=== PATIENT | female | born 1985 | race Hispanic/Latino ===

== ENCOUNTER 2016-11-28 12:39 | Emergency (ER) | payer OTHER ==
[~2016-11-28] VITALS: Ht 177.8 cm; Wt 140.6 kg
[~2016-11-28 12:39] MED LIST: BENZONATATE200 MG PO; CARAFATE 1GM1000 MG PO; CARVEDILOL6.25 MG PO; CLONAZEPAM0.5 MG PO; CLONAZEPAM1 MG PO; DILAUDID2 MG PO; HUMALOG100 U/ML SC; LANTUS INS100 UNITS/ SC; LEVAQUIN750 MG PO; LEXAPRO 10MG10 MG PO; OXYCODONE HCL15 MG PO; PANTOPRAZOLE SO40 MG PO; PERCOCET 325 MG1 TA2 PO; REGLAN10 MG PO; TRAMADOL HYDROC50 MG PO; VICODIN5-300 PO; ZOFRAN 4 MG TABL4 MG PO; ZOFRAN ODT4 MG PO; ZOFRAN ODT4 MG SL; ZOFRAN4 M1 PO
--- NOTE | 2016-11-28 15:00 | ED GI/GU/ABDOMINAL COMPLAINT ---
History of Present Illness General Chief Complaint: Abdominal Pain/Flank Pain Stated Complaint: UPPER ABD. PAIN, VOMITING X 1MTH Source: patient, old records Exam Limitations: no limitations Vital Signs & Intake/Output Vital Signs & Intake/Output Vital Signs Date Time Temp Pulse Resp B/P Pulse O2 O2 Flow FiO2 Ox Delivery Rate 11/28 1634 98.2 94 20 181/111 97 Room Air 11/28 1518 99 Room Air 11/28 1244 97.6 90 18 154/88 98 Room Air Allergies Coded Allergies: Penicillins (SWELLING 11/28/16) morphine (HIVES 11/28/16) Reconcile Medications Benzonatate 200 MG CAPSULE 1 CAP PO TID PRN COUGH Carvedilol 6.25 MG TABLET 1 TAB PO BID HTN (Reported) Clonazepam 1 MG TABLET 1 TAB PO BID ANXIETY (Reported) Escitalopram Oxalate (Lexapro 10MG) 10 MG TABLET 1 TAB PO DAILY ANXIETY ( Reported) HYDROCODONE/ACETAMINOPHEN (Hydrocodon-Acetaminophen 5-325) 5 MG-325 MG TABLET 1 TAB PO Q6H PRN pain Insulin Lispro, Recombinant (Humalog) 100 U/ML ISHMAEL diabetes (Reported) sliding scale Insulin-Lantus (Lantus Insulin) 100 UNIT/ML VIAL 30 UNITS SC 1/2H BEFOR/ BREAKFAST DIABETES (Reported) Levofloxacin (Levaquin) 750 MG TAB 1 TAB PO DAILY PNEUMONIA METOCLOPRAMIDE HCL (Reglan) 10 MG TABLET 1 TAB PO TID PRN ABDOMINAL PAIN 30 minutes before meals and bedtime Ondansetron (Zofran Odt) 4 MG TAB.RAPDIS 1 TAB PO Q6H PRN NAUSEA OXYCODONE HCL/ACETAMINOPHEN (Percocet 5-325 MG Tablet) 325 MG/5 MG TAB 1-2 TAB PO Q4-6 PRN PRN PAIN Pantoprazole Sodium 40 MG TABLET.DR 1 TAB PO BID GERD (Reported) Sucralfate (Carafate 1GM <1000MG> Tab) 1 GRAM TABLET 1 TAB PO 4 TIMES/DAY GASTRIC UPSET Triage Note: PT STATES THAT SHE HAS HAD LEXI ABD PAIN FOR MONTHS AND NO ONE CAN FIGURE OUT WHY. HAS N/V TODAY. STATES THAT HER GI DOCTOR KNOWS ABOUT THE PROBLEM. PT CRYING AT TRIAGE AND STATES THAT SHE CAN'T TAKE THE PAIN ANYMORE Triage Nurses Notes Reviewed? yes ? n Is pt currently ? No Onset: Gradual Duration: getting worse, intermittent, x 2 years Timing: recent history Quality/Severity: aching, sharpness, severe Severity Numbers: 10 Location: left upper quadrant Radiation: no radiation Activities at Onset: none No Modifying Factors: none Associated Symptoms: denies HPI: Is a 31-year-old female with history of cholecystectomy gastric sleeve 2 years ago who presents complaining of exacerbation of her chronic left upper quadrant abdominal pain that she has had for the past 2 years after the surgery getting worse over the past 1 month. She states that she's had numerous CAT scans and workups performed at [facility] and by her GI doctor with no known cause identified. She denies nausea and vomiting in the past however states she was nauseous today. No black or bloody stools no diarrhea no chest pain or shortness of breath. 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 There are no urinary symptoms no vaginal bleeding or discharge. Symptoms are not worse with eating or no other modifying factors or associated symptoms otherwise no fever no chills. Past History Travel History Traveled to [place] past 21 day No Medical History Any Pertinent Medical History? 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 No Review of Systems Review of Systems Constitutional: Reports: see HPI. All Other Systems: Reviewed and Negative Comments Review of systems: See HPI, All other systems negative. Constitutional, no chills no fever, no malaise HEENT: No visual changes no sore throat no congestion, Cardiovascular: No chest pain , no palpitation Skin, no rashes, no change in skin Respiratory: No dyspnea no cough no sputum GI: No nausea no vomiting, no diarrhea, : No dysuria Muscle skeletal: No joint pain, no joint swelling, no back pain, no neck pain, Neurologic: No numbness no headache Psych: No stress Heme/endocrine: No bruising no bleeding Immunology: No lymphadenopathy Physical Exam Physical Exam General Appearance: well developed/nourished, alert, awake Gastrointestinal: normal bowel sounds, soft, non-tender Comments: Well-developed well-nourished person in no acute distress HEENT: Normal EENT exam; PERRL, EOMI, HEAD is atraumatic. moist mucous membranes. Neck: Supple, normal range of motion Back: Nontender, no CVA tenderness. Full range of motion Cardiovascular: Regular rate and rhythms no murmurs rubs or gallops Respiratory: Chest nontender.There were no bony deformities, no asymmetry. No respiratory distress. Patient speaking in full complete sentences. Breath sounds clear to auscultation bilaterally: NO W/R/R Abdomen: Soft, nontender obese, nondistended, no appreciable organomegaly. Normal bowel sounds. No rebound/guarding, No appreciable enlargement of the abdominal aorta, No ascites. Extremity: No edema, full range of motion of extremities Neuro: Alert oriented x3, motor sensory normal, There were no obvious focal neurologic abnormalities. Skin: No appreciable rash on exposed skin, skin is warm and dry. Psych: Mood and affect is normal, memory and judgment is normal. Core Measures ACS in differential dx? No Severe Sepsis Present: No Septic Shock Present: No Progress Differential Diagnosis: appendicitis, bowel obstruction, colon cancer, diverticulitis, ectopic , gastritis, hepatitis, hernia, ischemic bowel, inflamm bowel dis, intrauterine , kidney stone, pancreatitis, SBO, threatened AB, UTI/pyelo, internal hernia Plan of Care: Orders Procedure Date/time Status LIPASE 11/28 1451 Complete HUMAN BETA HCG SCREEN 11/28 1451 Complete COMPREHENSIVE METABOLIC PANEL 11/28 1451 Complete CBC WITHOUT DIFFERENTIAL 11/28 145 Complete AMYLASE 11/28 1451 Complete Laboratory Tests 11/28/16 1555: Anion Gap 10, Estimated GFR > 60, BUN/Creatinine Ratio 12.0, Glucose 126 H, Calcium 9.6, Total Bilirubin 1.2, AST 27, ALT 33, Alkaline Phosphatase 93, Total Protein 7.4, Albumin 4.1, Globulin 3.3, Albumin/Globulin Ratio 1.2, Amylase 118 H, Lipase 76, Total Beta HCG NEGATIVE, CBC w Diff NO MAN DIFF REQ, RBC 4.71, MCV 74.5 L, MCH 23.7 L, RDW 17.9 H, MPV 9.4, Gran % 67.8, Lymphocytes % 20.8, Monocytes % 7.6, Eosinophils % 3.2, Basophils % 0.6, Absolute Granulocytes 7.6 H, Absolute Lymphocytes 2.3, Absolute Monocytes 0.9 H, Absolute Eosinophils 0.4 , Absolute Basophils 0.1, PUBS MCHC 31.9 L Labs ordered CAT scan ordered. I discussed the patient given the duration of her symptoms has been going on for the past 2 years I do not believe the patient requires narcotic pain medication at this time Toradol Bentyl IM ordered 1700 as called to the patient's room patient remains tearful stating that she get something stronger for pain she is refusing to have anymore testing including CAT scans done, I do not believe the patient requires this medication given her unremarkable labs, and the fact that she has had this pain going on for the past 2 years. I discussed with her at length that I believe the patient needs close follow up with bariatric surgery, as well as her GI both of which are out of [place] and [facility] respectively, the patient recently had prescriptions for both Vicodin and hydromorphone provided, patient is again refusing CT, case was discussed with Dr. gurrola patient was cleared for discharge (MARY BETANCOURT) Initial ED EKG: none Departure Departure Time of Disposition: 1700 Disposition: LEFT AGAINST MEDICAL ADVICE Condition: Stable Clinical Impression Primary Impression: Chronic abdominal pain Referrals: JAVED FERMIN,NOEMY Jones UNKNOWN (PCP/Family) Additional Instructions: Follow-up with [facility] DR BURT. As discussed it was recommended to you that you have a CAT scan performed which you are refusing. Return anytime sooner if your symptoms worsen or he have any other concerns Departure Forms: Customer Survey General Discharge Information
[2016-11-28 16:11] LABS: ABSOLUTE BASOPHIL COUNT 0.1 /CUMM (0.0-0.2); ABSOLUTE EOSINOPHIL COUNT 0.4 /CUMM (0.0-0.7); ABSOLUTE GRANULOCYTE CT 7.6 /CUMM (1.4-6.5); ABSOLUTE LYMPH COUNT 2.3 /CUMM (1.2-3.4); ABSOLUTE MONOCYTE COUNT 0.9 /CUMM (0.10-0.60); BASOPHIL % 0.6 % (0.0-2.0); EOSINOPHIL % 3.2 % (0-5); GRANULOCYTE % 67.8 % (42.2-75.2); HEMATOCRIT 35.1 % (37-47); MEAN CORPUSCULAR HGB 23.7 PG (27.0-31.0); MEAN CORPUSCULAR HGB CONC 31.9 G/DL (33.0-37.0); MEAN CORPUSCULAR VOLUME 74.5 FL (81.0-99.0); MEAN PLATELET VOLUME 9.4 FL (7.4-10.4); PLATELET COUNT 365 /CUMM (130-400); RBC DISTRIBUTION WIDTH 17.9 % (11.5-14.5); RED BLOOD CELL CT 4.71 /CUMM (4.20-5.40); WHITE BLOOD CELL COUNT 11.3 /CUMM (4.8-10.8)
[2016-11-28 16:34] VITALS: BP 181/111
== END 2016-11-28 17:28 | disposition left against medical advice (07) ==
LOC: ERH 12:39
PROVIDERS: Physician Assistant Medical
DX: G89.29 Other chronic pain (principal); R10.12 Left upper quadrant pain
CPT/HCPCS: 96372; J0500; J1885; J3101

== ENCOUNTER 2016-12-20 17:12 | Inpatient (IN) | payer OTHER ==
[~2016-12-20] VITALS: Ht 177.8 cm; Wt 139.3 kg
--- NOTE | 2016-12-20 17:19 | ED SYNCOPE COMPLAINT ---
History of Present Illness General Chief Complaint: Syncope and Near-Syncope Stated Complaint: SYCOPAL EPISODE WITH HEAD STRIKE AND LOC 2 MIN Source: patient, old records, EMS Exam Limitations: no limitations Vital Signs & Intake/Output Vital Signs & Intake/Output Vital Signs Date Time Temp Pulse Resp B/P Pulse O2 O2 Flow FiO2 Ox Delivery Rate 12/22 1700 98.2 56 18 132/78 97 Room Air ED Intake and Output 12/23 0000 12/22 1200 Intake Total 480 480 Output Total Balance 480 480 Intake, Oral 480 480 Allergies Coded Allergies: Penicillins (SWELLING 11/28/16) morphine (HIVES 11/28/16) Triage Nurses Notes Reviewed? yes Timing: single episode today Loss of Consciousness: prolonged (minutes) Associated Symptoms: abdominal pain HPI: Patient is a 31-year-old female with a past medical history of chronic abdominal pain status post cholecystectomy and gastric sleeve performed by [facility] surgeon Dr. Martinez approximately 2 years ago who is been complaining of chronic exacerbation of abdominal pain for some time now. Patient states that she has had a few episodes of syncopal event due to severe abdominal pain last episode was approximately 2 weeks ago patient was seen at [facility]. Patient was brought in by a month today and which she was at work today stating that her chronic abdominal pain exacerbated today which then due to the severe pain patient had an episode of syncope and approximate 2 minutes of loss of consciousness. He was noted by bystanders. Discussed with EMS who states to me that patient was in the standing position and had positive head strike. Cervical collar was placed by EMS. Blood glucose was 233 on arrival. Patient currently complains of severe abdominal pain neck pain and headache. No bloody stool or dark stool noted by patient denies any chest pain shortness of breath. Patient states that she only takes Tylenol for her symptoms. Denies any vaginal bleeding vaginal discharge dysuria hematuria tongue biting or bowel or bladder incontinence episodes. It was noted through old record that patient was evaluated here approximately 3 weeks ago for abdominal pain however she refuses CT scan imaging due to multiple CT scans in the past. Patient left AGAINST MEDICAL ADVICE. Is noted to the patient last 3 months has multiple prescriptions by multiple prescribers for narcotics at different pharmacies. She states that she currently is trying to set up [facility] Dr. Ferrer for reestablishment with a new gastric surgeon (MARY DURAN) Reconcile Medications Cyanocobalamin (Vitamin B-12) (Cyanocobalamin Injection) 1,000 MCG/ML VIAL 1 ML IM Q30D SUPPLEMENT (Reported) Insulin Lispro (Humalog Kwikpen U-100) 100 UNIT/ML INSULN.PEN 20 UNITS SC TIDAC DM (Reported) Insulin-Lantus (Lantus) 100 UNIT/ML VIAL 30 UNITS SC QHS DM (Reported) Pantoprazole Sodium 40 MG TABLET.DR 1 TAB PO DAILY GI (Reported) Polyethylene Glycol 3350 17 GRAM/DOSE POWDER 17 GM PO DAILY GI (Reported) (MARCIN RESENDIZ MD) Past History Medical History Any Pertinent Medical History? 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 No (MARY DURAN) Review of Systems Review of Systems Constitutional: Reports: no symptoms. EENTM: Reports: no symptoms. Respiratory: Reports: no symptoms. Cardiovascular: Reports: see HPI, syncope. GI: Reports: see HPI, abdominal pain. Genitourinary: Reports: no symptoms. Musculoskeletal: Reports: see HPI, neck pain. Denies: back pain. Skin: Reports: no symptoms. Neurological/Psychological: Reports: see HPI, headache. All Other Systems: Reviewed and Negative (MARY DURAN) Physical Exam Physical Exam General Appearance: moderate distress, obese Cranial Nerves: normal hearing, normal speech, PERRL Comments: HEENT: Normal EENT exam, extraocular motion intact, no nystagmus. Pupils equally round and reactive to light and accommodation. Nose is atraumatic. External auditory canal and Tympanic membranes clear. Pharynx normal. No swelling or edema. Neck: Cervical collar in place or generalized point tenderness Back: No central spinous tenderness Cardiovascular: Regular rate and rhythms no murmurs rubs or gallops, normal JVP Respiratory: Chest nontender. No respiratory distress.breath sounds clear to auscultation bilaterally Abdomen: Soft, generalized point tenderness noted nondistended, no appreciable organomegaly. Normal bowel sounds. No ascites Extremity: No edema, no calf tenderness to palpation, normal and equal pulses. Myotomes dermatomes intact bilateral upper extremity and lower extremity Neuro: Alert oriented x3, motor sensory normal, cranial nerves II through XII grossly intact. Skin: No appreciable rash on exposed skin, skin is warm and dry. Psych: Mood and affect is normal, memory and judgment is normal. Core Measures ACS in differential dx? Yes CVA/TIA Diagnosis: No Severe Sepsis Present: No Septic Shock Present: No (ANDRA GUTHRIE,MARY) Progress Differential Diagnosis: AMI, aortic dissection, aortic valve, drug induced syncope, hyperventilation, orthostatic syncope, other valvular disease, pacemaker malfunction, pericardial tamponade, pulmonary embolus, seizure, sick sinus syndrome, subarachnoid hem., TIA/CVA, vasodepressor syncope, ventricular tach/fib, ICH Plan of Care: Orders Procedure Date/time Status BASIC ELECTROLYTES PLUS BUN&CR 12/22 1654 Complete Discharge Patient 12/22 UNK Active Laboratory Tests 12/22/16 1705: Anion Gap 9, Estimated GFR > 60, BUN/Creatinine Ratio 10.0 On initial examination patient was in severe distress. Patient was given IM Dilaudid currently is in no apparent distress CT scan currently is pending. Patient is lying in a supine position however using her phone with both her arms with no distress. Patient does have concerns of bradycardia however patient is not on a beta derrick Patient did have an episode today of syncope approximately 2 minutes and signs of bradycardia the patient will require telemetry admission. It was also discussed with me by the radiologist for concerns of nonspecific right-sided parietal vasogenic edema in which patient may receive MRI and neurology consultation during admission. Patient currently is in no apparent distress. The cervical collar was removed after CT scan of cervical spine was unremarkable. Patient agrees with disposition plan hot dipper noted patient to be 40 bpm to [address] Frost agreed with telemetry observation under his service (ANDRA GUTHRIE,MARY) Diagnostic Imaging: Viewed by Me: CT Scan. Discussed w/RAD: CT Scan. Radiology Impression: SEE COMMENTS Initial ED EKG: BRADYCARDIA NOTED AT 48 BPM Comments: PATIENT: ARIEL JAY PRESENT AGE: 31 PATIENT ACCOUNT NO: [id number] : 83 LOCATION: [facility] ORDERING PHYSICIAN: MARY GUTHRIE SERVICE DATE: 12/20/16-1720 EXAM TYPE: CAT - CT CERV SPINE WO IV CONTRAST; CT HEAD WO IV CONTRAST EXAMINATION: CT OF THE HEAD WITHOUT CONTRAST CT OF THE CERVICAL SPINE WITHOUT CONTRAST CLINICAL INFORMATION: Syncope. Head strike and neck pain. Severe abdominal pain. COMPARISON: None. TECHNIQUE: Contiguous axial imaging of the head was performed without the administration of IV contrast. Axial multidetector volumetric images were also performed through the cervical spine without contrast. Multiplanar reconstructed images in coronal and sagittal orientations were submitted. DOSE: 1148.8 mGy-cm FINDINGS: HEAD: There is focal cortical hypoattenuation in the right posterior parietal lobe, predominantly involving the subcortical white matter. This is most compatible with vasogenic edema. A contusion is possible, though location is abnormal. No underlying hemorrhage is identified. No overlying fractures. There is hypoattenuation within the right frontal lobe on image 40/72 of series 2 which is likely artifactual in nature, though also indeterminate. There is no evidence of acute intracranial hemorrhage or territorial infarction. No abnormal mass-effect or midline shift. No extra-axial fluid collections. Santana to white matter differentiation is well preserved. The ventricles are normal in size and configuration. The soft tissues and osseous structures are normal. The sinuses and mastoid air cells are clear. CERVICAL SPINE: No fracture or malalignment. Vertebral body heights are normal. No fracture or spondylolisthesis. Central canal appears patent without evident hematoma. There is a posterior osteophyte at the C7-T1 level is likely produces mild central canal stenosis. No neural foraminal stenoses are identified. Facet joints are well-preserved. Paraspinal soft tissues are unremarkable. IMPRESSION: Head: 1. Focal area of vasogenic edema in the right posterior parietal lobe. Although this could be a contusion, though location is atypical and the appearance is nonspecific, particularly in the absence of surrounding blood products. Further evaluation with MRI of the brain with and without contrast is advised for better evaluation. 2. Cortical hypoattenuation in the lateral aspect of right frontal lobe is favored to represent artifact, though this could also be better evaluated on the follow-up MRI. 3. No intracranial hemorrhage, mass effect, or midline shift. Cervical spine: 1. No acute fracture or malalignment 2. Mild central canal narrowing at C7-T1 due to a posterior endplate osteophyte. This result was discussed by telephone with Dr. Garcia at 7:50 PM on 12/20/2016 . DICTATED BY: VIRIDIANA GARCIA MD DATE/TIME DICTATED:12/20/161929 TRACTOR MECHANIC APPRENTICE:MATT DATE/TIME TRANSCRIBED:12/20/161929 (MARY DURAN) Departure Departure Disposition: STILL A PATIENT Condition: Stable Clinical Impression Primary Impression: Bradycardia Secondary Impressions: Abdominal pain, EKG abnormalities, Fall, Minor head injury, Neck pain, Syncope Referrals: UNKNOWN Departure Forms: Customer Survey General Discharge Information Admission Note Spoke With: NILESH FERMIN PhD,KRIS Morgan Documentation of Exam: Documentation of any treatments & extenuating circumstances including Concerns Regarding Discharge (functional status, medication knowledge or non-compliance, living conditions, etc.) that warrant an admission rather than observation: [ Discussed patient with Dr. Frost who agrees with telemetry admission for concerns of bradycardia and syncope patient requires repeat labs, cardiology consultation, repeat EKG, MRI neurology consultation and further evaluation treatment of symptoms.] (MARY DURAN) PA/ENTRY LEVEL SOFTWARE DEVELOPER Co-Sign Statement Statement: ED Attending supervision documentation- [] I saw and evaluated the patient. I have also reviewed all the pertinent lab results and diagnostic results. I agree with the findings and the plan of care as documented in the PA's/ENTRY LEVEL SOFTWARE DEVELOPER's documentation. [X] I have reviewed the ED Record and agree with the PA's/ENTRY LEVEL SOFTWARE DEVELOPER's documentation. [] Additions or exceptions (if any) to the PAs/ENTRY LEVEL SOFTWARE DEVELOPER's note and plan are summarized below: [] (MARTÍN FERMIN,MARCIN) Documentation of Exam: Documentation of any treatments & extenuating circumstances including Concerns Regarding Discharge (functional status, medication knowledge or non-compliance, living conditions, etc.) that warrant an admission rather than observation: [ Discussed patient with Dr. Frost who agrees with telemetry admission for concerns of bradycardia and syncope patient requires repeat labs, cardiology consultation, repeat EKG, MRI neurology consultation and further evaluation treatment of symptoms.]
[2016-12-20] MEDS ORDERED: HUMALOG KW100 UNIT/1 SC (17:57)
[2016-12-20] MEDS ORDERED: CYANOCOBAL1000 MCG/2 IM (17:57)
[2016-12-20] MEDS ORDERED: MAGNESIUM OXID400 M1 PO (17:58)
[2016-12-20] MEDS ORDERED: REGLAN10 M1 PO (17:58)
[2016-12-20] MEDS ORDERED: LANTUS100 UNIT/1 SC (17:58)
[2016-12-20] MEDS ORDERED: PANTOPRAZOLE SO40 M1 PO (17:59)
[2016-12-20] MEDS ORDERED: POLYETHYLENE G255 GM PO (17:59)
[2016-12-20 18:07] LABS: ABSOLUTE BASOPHIL COUNT 0.1 /CUMM (0.0-0.2); ABSOLUTE EOSINOPHIL COUNT 0.2 /CUMM (0.0-0.7); ABSOLUTE GRANULOCYTE CT 9.5 /CUMM (1.4-6.5); ABSOLUTE LYMPH COUNT 1.2 /CUMM (1.2-3.4); ABSOLUTE MONOCYTE COUNT 0.6 /CUMM (0.10-0.60); BASOPHIL % 0.5 % (0.0-2.0); EOSINOPHIL % 1.6 % (0-5); GRANULOCYTE % 82.1 % (42.2-75.2); MEAN CORPUSCULAR HGB 23.7 PG (27.0-31.0); MEAN CORPUSCULAR HGB CONC 31.5 G/DL (33.0-37.0); MEAN CORPUSCULAR VOLUME 75.2 FL (81.0-99.0); MEAN PLATELET VOLUME 9.2 FL (7.4-10.4); PLATELET COUNT 397 /CUMM (130-400); RBC DISTRIBUTION WIDTH 17.8 % (11.5-14.5); RED BLOOD CELL CT 5.05 /CUMM (4.20-5.40); WHITE BLOOD CELL COUNT 11.6 /CUMM (4.8-10.8)
--- NOTE | 2016-12-20 19:58 | CT SCAN REPORT ---
EXAMINATION: CT ABDOMEN AND PELVIS WITHOUT CONTRAST CLINICAL INFORMATION: Severe abdominal pain. COMPARISON: 05/09/2015 TECHNIQUE: Multidetector volumetric imaging was performed from the superior aspect of the liver through the pubic symphysis. Sagittal and coronal reformatted images were obtained on the technologist's workstation. DLP: 1589 mGy-cm FINDINGS: LUNG BASES: Dependent atelectasis is present in the lower lobes. Hypoattenuation of the blood pool relative to the myocardium is consistent with anemia. LIVER, GALLBLADDER, AND BILIARY TREE: The liver is normal in size, shape, and attenuation. No focal hepatic lesion or biliary ductal dilatation is present. Gallbladder is surgically absent. PANCREAS: Unremarkable. SPLEEN: Unremarkable. ADRENAL GLANDS: Unremarkable. KIDNEYS AND URETERS: The kidneys are normal in size, shape, and attenuation. No hydronephrosis, hydroureter, or calculi seen. No perinephric stranding. BLADDER: Unremarkable. GASTROINTESTINAL TRACT: Postsurgical changes of prior gastric sleeve bariatric surgery are evident at the stomach with chain maximiliano along the greater curvature and projection of the luminal caliber. Stomach is otherwise unremarkable. The small bowel and colon are normal in caliber without bowel wall thickening. Appendix is normal. No intraperitoneal free fluid or free air. No inflammatory changes are present within the fat surrounding the bowel. No appreciable bowel wall thickening. ABDOMINAL WALL: Tiny fat-containing umbilical hernia. No bowel involvement. Focal haziness in the subcutaneous fat in the right midabdomen immediately soft tissue contusion or area of subcutaneous injection. LYMPH NODES: No adenopathy. VASCULAR: Unremarkable. PELVIC VISCERA: Uterus is normal in appearance. There is a 3.2 cm cyst on the right ovary, likely a large follicular cyst. Left adnexa is unremarkable. OSSEOUS STRUCTURES: Multilevel degenerative disc disease is present in the lumbar spine. There are prominent posterior osteophytes from the L2-L3 level through the L5-S1 level which likely produce central canal narrowing. No acute osseous abnormalities. IMPRESSION: 1. No acute intra-abdominal or intrapelvic abnormalities. 2. Postsurgical changes of prior gastric sleeve. No surrounding acute findings. 3. A 3.2 cm cyst on the right ovary, most likely a follicular cyst. 4. Degenerative disc disease in lumbar spine with prominent posterior osteophytes from the L2-L3 level through the L5-S1 level. These may produce central canal stenosis.
--- NOTE | 2016-12-20 19:58 | CT SCAN REPORT ---
EXAMINATION: CT OF THE HEAD WITHOUT CONTRAST CT OF THE CERVICAL SPINE WITHOUT CONTRAST CLINICAL INFORMATION: Syncope. Head strike and neck pain. Severe abdominal pain. COMPARISON: None. TECHNIQUE: Contiguous axial imaging of the head was performed without the administration of IV contrast. Axial multidetector volumetric images were also performed through the cervical spine without contrast. Multiplanar reconstructed images in coronal and sagittal orientations were submitted. DOSE: 1148.8 mGy-cm FINDINGS: HEAD: There is focal cortical hypoattenuation in the right posterior parietal lobe, predominantly involving the subcortical white matter. This is most compatible with vasogenic edema. A contusion is possible, though location is abnormal. No underlying hemorrhage is identified. No overlying fractures. There is hypoattenuation within the right frontal lobe on image 40/72 of series 2 which is likely artifactual in nature, though also indeterminate. There is no evidence of acute intracranial hemorrhage or territorial infarction. No abnormal mass-effect or midline shift. No extra-axial fluid collections. Santana to white matter differentiation is well preserved. The ventricles are normal in size and configuration. The soft tissues and osseous structures are normal. The sinuses and mastoid air cells are clear. CERVICAL SPINE: No fracture or malalignment. Vertebral body heights are normal. No fracture or spondylolisthesis. Central canal appears patent without evident hematoma. There is a posterior osteophyte at the C7-T1 level is likely produces mild central canal stenosis. No neural foraminal stenoses are identified. Facet joints are well-preserved. Paraspinal soft tissues are unremarkable. IMPRESSION: Head: 1. Focal area of vasogenic edema in the right posterior parietal lobe. Although this could be a contusion, though location is atypical and the appearance is nonspecific, particularly in the absence of surrounding blood products. Further evaluation with MRI of the brain with and without contrast is advised for better evaluation. 2. Cortical hypoattenuation in the lateral aspect of right frontal lobe is favored to represent artifact, though this could also be better evaluated on the follow-up MRI. 3. No intracranial hemorrhage, mass effect, or midline shift. Cervical spine: 1. No acute fracture or malalignment 2. Mild central canal narrowing at C7-T1 due to a posterior endplate osteophyte. This result was discussed by telephone with Dr. Garcia at 7:50 PM on 12/20/2016 .
[2016-12-20 23:03] VITALS: BP 160/88
--- NOTE | 2016-12-21 01:27 | History & Physical ---
MARIA L AN MD 12/21/16 0126: General Information and HPI MD Statement: I have seen and personally examined ARIEL JAY and documented this H&P. The patient is a 31 year old F who presented with a patient stated chief complaint of severe abdominal pain and syncope. Source of Information: patient, old records Exam Limitations: no limitations History of Present Illness: Ms. aJy is a 31 year old female with PMH insulin-dependant diabetes mellitus, migraine headaches, morbid obesity s/p gastric sleeve in July 2014 and PCOS (has not been compliant with prescribed NuvaRing) who presents with acute exacerbation of chronic abdominal pain and three episodes of syncope. As per patient, she has had chronic abdominal pain since her gastric sleeve in 2013. However, this last month the pain has been very severe and have been associated with severe nausea and vomiting this last week. This vomitus is yellow or white and described as foamy. Also this week, patient had three episodes of syncope, the last of which was witnessed and patient was noted to have dizziness and cold sweating before it occured. These syncopal episodes tend to occur after an acute exacerbation of the chronic abdominal pain. Associated symptoms include palpitations, pounding heart beat, poor appetite, generalized weakness, and nausea/vomiting. Of note, patient has been going to several emergency rooms recently for pain medication to deal with this abdominal pain. She has received both morphine and tramadol, both of which she admits to taking prior to presenting to the ED. Social history is significant for tobacco abuse of 1/2 ppd x 15 years, social alcohol use and occasional marijuana use. 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 Surgical history is significant for gastric sleeve and left ovarian tumor ( benign) removal. Allergies/Medications Allergies: Coded Allergies: Penicillins (SWELLING 11/28/16) morphine (HIVES 11/28/16) Home Med list Cyanocobalamin (Vitamin B-12) (Cyanocobalamin Injection) 1,000 MCG/ML VIAL 1 ML IM Q30D SUPPLEMENT (Reported) Insulin Lispro (Humalog Kwikpen U-100) 100 UNIT/ML INSULN.PEN 20 UNITS SC TIDAC DM (Reported) Insulin-Lantus (Lantus) 100 UNIT/ML VIAL 30 UNITS SC QHS DM (Reported) Magnesium Oxide 400 MG TABLET 1 TAB PO DAILY SUPPLEMENT (Reported) Metoclopramide HCl (Reglan) 10 MG TABLET 1 TAB PO DAILY PRN HEADACHES ( Reported) 30 minutes before meals and bedtime Pantoprazole Sodium 40 MG TABLET.DR 1 TAB PO DAILY GI (Reported) Polyethylene Glycol 3350 17 GRAM/DOSE POWDER 17 GM PO DAILY GI (Reported) Compliance With Home Meds: GOOD Past History Travel History Traveled to [place] past 21 day No Medical History Blood Transfusion Hx: No Neurological: NONE EENT: NONE Cardiovascular: hypertension Respiratory: obstructive sleep apnea, USES CPAP Gastrointestinal: NONE Hepatic: NONE Renal: NONE Musculoskeletal: disk herniation Psychiatric: NONE Endocrine: diabetes Blood Disorders: NONE Cancer(s): ovarian cancer 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 Home Who Do You Live With? Family Services at Home: None Smoking Status: Current Everyday Smoker ETOH Use: occasional use Illicit Drug Use: denies illicit drug use Functional Ability ADLs Independent: dressing, eating, toileting, bathing. Ambulation: independent IADLs Independent: shopping, housework, finances, food prep, telephone, transportation , medication admin. 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 EENTM: Denies: visual changes, hearing changes, nasal congestion, throat pain. Cardiovascular: Reports: palpitations, syncope. Denies: chest pain, peripheral edema. Respiratory: Denies: cough, short of breath, sputum production. GI: Reports: nausea, vomiting. Genitourinary: Denies: dysuria, hematuria, pain. Musculoskeletal: Denies: back pain. Skin: Denies: lesions, rash. Neurological/Psychological: Denies: ataxia, confusion, headache, numbness. Hematologic/Endocrine: Denies: bruising, bleeding. Immunologic/Allergic: Denies: splenectomy. All Other Systems: Reviewed and Negative Exam & Diagnostic Data Last 24 Hrs of Vital Signs/I&O Vital Signs Date Time Temp Pulse Resp B/P Pulse O2 O2 Flow FiO2 Ox Delivery Rate 12/20 2303 97.8 60 18 160/88 96 Room Air 12/20 2228 Room Air 12/20 2205 98.0 50 18 177/73 99 Room Air 12/20 1942 97.0 51 18 164/74 100 Room Air 12/20 1812 Room Air 12/20 1726 98.8 71 18 164/79 100 Room Air Intake & Output 12/21 0800 12/21 0000 12/20 1600 Intake Total Output Total Balance Patient 307 lb 307 lb Weight Physical Exam General Appearance Alert, Oriented X3, Cooperative, No Acute Distress Skin No Rashes, No Significant Lesion HEENT Atraumatic, PERRLA, EOMI, Mucous Membr. moist/pink Neck Supple, +2 Carotid Pulse wo Bruit Lymphatic Cervical nl Cardiovascular Regular Rate, Normal S1, Normal S2, No Murmurs Lungs Clear to Auscultation, Normal Air Movement Abdomen Normal Bowel Sounds, Soft, No Masses, Severe tenderness to palpation of Left upper and lower quadrant Neurological Normal Speech, Strength at 5/5 X4 Ext, Normal Tone Extremities No Clubbing, No Cyanosis, No Edema, Skin changes noted on bilateral lower extremities Vascular Pulses Symmetrical Last 24 Hrs of Labs/John: Laboratory Tests 12/20/16 2000: Urine Opiates Screen 2313.00 H, Methadone Screen < 40, Barbiturate Screen < 60, Ur Phencyclidine Scrn < 6.00, Amphetamines Screen < 100, U Benzodiazepines Scrn < 85, Urine Cocaine Screen < 50, Urine Cannabis Screen > 80.00 H 12/20/16 1755: Anion Gap 16, Estimated GFR > 60, BUN/Creatinine Ratio 8.0, Glucose 182 H, Calcium 9.6, Total Bilirubin 1.4 H, AST 40 H, ALT 41, Alkaline Phosphatase 91, Troponin I < 0.01, Total Protein 7.9, Albumin 4.5, Globulin 3.4, Albumin/ Globulin Ratio 1.3, Amylase 34, Lipase 61, TSH 1.310, Thyroxine (T4) 11.7 H, Total Beta HCG NEGATIVE, CBC w Diff NO MAN DIFF REQ, RBC 5.05, MCV 75.2 L, MCH 23.7 L, RDW 17.8 H, MPV 9.2, Gran % 82.1 H, Lymphocytes % 10.6 L, Monocytes % 5.2, Eosinophils % 1.6, Basophils % 0.5, Absolute Granulocytes 9.5 H, Absolute Lymphocytes 1.2, Absolute Monocytes 0.6, Absolute Eosinophils 0.2, Absolute Basophils 0.1, PUBS MCHC 31.5 L, Serum Alcohol < 10.0 Diagnostic Data EKG Results SB, HR 48 bpm, QTC 419 Other Results Abdomen/Pelvis CT: IMPRESSION: 1. No acute intra-abdominal or intrapelvic abnormalities. 2. Postsurgical changes of prior gastric sleeve. No surrounding acute findings. 3. A 3.2 cm cyst on the right ovary, most likely a follicular cyst. 4. Degenerative disc disease in lumbar spine with prominent posterior osteophytes from the L2-L3 level through the L5-S1 level. These may produce central canal stenosis. CT head and cspine: Head: 1. Focal area of vasogenic edema in the right posterior parietal lobe. Although this could be a contusion, though location is atypical and the appearance is nonspecific, particularly in the absence of surrounding blood products. Further evaluation with MRI of the brain with and without contrast is advised for better evaluation. 2. Cortical hypoattenuation in the lateral aspect of right frontal lobe is favored to represent artifact, though this could also be better evaluated on the follow-up MRI. 3. No intracranial hemorrhage, mass effect, or midline shift. Cervical spine: 1. No acute fracture or malalignment 2. Mild central canal narrowing at C7-T1 due to a posterior endplate osteophyte. Assessment/Plan Assessment: Ms. Jay is a pleasant 31 year old female with PMH PCOS, insulin-dependant diabetes mellitus, low back pain and morbid obesity status post gastric sleeve in 2013 who presents with acute exacerbation of her chronic abdominal pain associated with poor appetite, nausea, vomiting, malaise and three episodes of synope. These syncopal episodes occur after exaggeration of the pain and are preceded by dizziness, chills and diaphoresis. In the ED: Vital signs showed T 98.8, HR 71, RR 18, BP 164/79 and O2 saturation of 100% on room air. Labs were significant for WBC 11.6, MCV 75.2, K 3.3, Cl 97, BUN 4, Glu 182, TBili 1.4, AST 40, trop <0.01, and total beta HCG negative. UTox showed urine opiates 2313, urine cannabis >80. Abdomen/pelvis CT showed no acute findings, post-surgical changes of gastric sleeve, 3.2 cm right ovarian cyst (likely follicular) and degenerative changes of the spine. Head CT showed vasogenic edema of right posterior parietal lobe and cortical hypoattenuation of lateral aspect of right frontal lobe likely artifact. Cspine showed no acute fracture or malalignment but noted central canal narrowing at C7-T1. Patient is admitted to telemetry and the following is the management: 1. Syncope * Consideration for vasovagal with noted pre-syncope symptoms and severe 10/10 pain prior to syncopal episodes * Admit to tele for continuous telemetry monitoring * Rule out ACS with troponin EKG x 3, first set negative * Cardio consult for the AM * Orthostatic vital signs negative 2. 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 Hypokalemia * K 3.3 on admission * Patient given 40 meq x 1 * Will repeat chem panel in AM and replete as necessary 4. Insulin-dependant DM * Accuchecks TIDAC/HS * Levemir 20 U SC at bedtime * NSS TIDAC 5. Low MCV * MCV low to 75.2 on admission, consideration for iron deficiency s/p gastric sleeve * Iron panel ordered, f/u rseults 6. Abnormal head CT * Head CT showing focal area of vasogenic edema in the right posterior parietal lobe (the appearance is nonspecific) and cortical hypoattenuation in the lateral aspect of right frontal lobe is that is favored to represent artifact * No focal neuro defecits appreciated, no headache * Follow up MRI as an outpatient FULL CODE DVTP: SC Lovenox Consistent Carb 2 Diet Mild pain pathway As Ranked By This Provider Problem List: 1. Bradycardia 2. Minor head injury 3. Syncope 4. Nausea & vomiting 5. Chronic abdominal pain Core Measures/Miscellaneous Acute Coronary Syndrome ACS Diagnosis: No Cerebrovascular Accident CVA/TIA Diagnosis: No Congestive Heart Failure CHF Diagnosis: No Venous Thromboembolism VTE Risk Factors: Acute medical illness, Age > 40, Obesity, Smoking No Mech VTE prophylaxis d/t: No contraindications No VTE Pharm Prophylaxis d/t: No contraindications VTE Diagnosis: No VTE Type: NONE VTE Confirmed by (Test): NONE Severe Sepsis Severe Sepsis Present: No Septic Shock Septic Shock Present: No Miscellaneous Documentation Attending Case Discussed With: NILESH FERMIN PhD,KRIS Morgan Primary Care Physician: PATIENT HAS NO PRIMARY CARE DR Patient sees these Specialists Unknown. Level of Patient Care: Telemetry HARI FERMIN,MARGI 12/21/16 0204: Resident Review Statement Resident Statement: examined this patient, discussed with internship, agreed with internship, reviewed EMR data (avail), reviewed images, amended to note Other Findings: This is 31 year old morbidly obese female with past medical history of insulin- dependent diabetes, morbid obesity status post gastric sleeve surgery in July 2014, chronic abdominal pain since surgery, PCO S presented from home after head and episode of syncope. As per the patient her chronic abdominal pain got worse for past couple months at the point that she had 2 prior episode of syncope in setting of severe abdominal pain. Her last episode was today in the afternoon. She was going to the bathroom while she felt dizzy and experienced cold sweats prior to losing her consciousness and falling back and hitting her head. Prior to syncopal episode patient had severe abdominal pain. Patient did felt palpitations and has been experiencing generalized weakness and nausea for past few days. Patient had recent multiple ER visits for her abdominal pain seeking for pain medication, received Dilaudid and tramadol and also Percocet which she admits to take as needed for her pain. Patient also had left ovarian was which was removed and found to be benign. On admission her vitals were T 98.8, HR 71, RR 18, BP 164/79, O2 sat 100% on room air. On physical exam patient is alert oriented 3 in no acute distress, HEENT PERRLA EOMI, neck supple, moist mucous membrane, heart S1-S2 normal without murmur, lungs clear on auscultation, abdomen soft with significant abdominal obesity and left upper and lower quadrant abdominal tenderness, no focal gross neuro deficit , no peripheral edema. Labs were significant for leukocytosis of 11,600, K 3.3, blood glucose 182, total bilirubin 1.4, AST 40, TSH 1.31, thyroxine 11.7, MCV 75.2 with H&H 12/38, serial EtOH< 10, U tox positive for opiates and cannabis. CT had revealed focal area of vasogenic edema in the right posterior parietal lobe likely passenger service representative of contusion but it could be nonspecific finding require further evaluation with MRI. Also noted cortical hypoattenuation in the lateral aspect of right frontal lobe likely representing artifact. CT cervical spine did not reveal any evidence of acute fracture or malalignment but noted mild central canal narrowing at C7 to T1 due to posterior endplate osteophyte. CT abdomen pelvis did not reveal any acute intra-abdominal or intrapelvic abnormalities noted 3.2 cm cyst on the right ovary and also noted postsurgical changes of prior gastric sleeve. Also noted degenerative disc disease in lumbar spine with prominent posterior osteophytes from L2 to L3 level and through L5 to S1 level. Patient admitted to telemetry floor for further evaluation of syncope 1. Syncope - Likely vasovagal in nature in setting of severe pain - Rule out ACS with serial troponin - Orthostatic BP noted negative for any orthostatic hypotension - Cardiology evaluation in a.m. - Continue telemetry monitoring for any arrhythmia - Defer echocardiogram to cardiology 2. Abdominal pain - Patient had CT abdomen and pelvis which did not reveal any intra-abdominal pathology - Patient has severe lumbar spine degenerative disease but it should not give left upper and lower quadrant abdominal pain - Patient had multiple ER visit in recent past and patient has been asking for Dilaudid and has been taking Percocet and her U tox is positive for opiates, which is concerning for possible drug-seeking behavior - Pain management with oral Percocet and Tylenol and if needed with severe pain can be given Dilaudid - If patient persistently have severe abdominal pain, consider somatoform disorder versus pain seeking behavior 3. Insulin-dependent diabetes - Accu-Cheks - Continue Levemir 20 units at bedtime - NovoLog sliding scale before meals 4. DVT prophylaxis Subcutaneous heparin 4. Full code We discussed the case with on-call cardiology in a.m.
[2016-12-21 07:45] VITALS: BP 140/70
[2016-12-21 08:26] LABS: ABSOLUTE BASOPHIL COUNT 0.1 /CUMM (0.0-0.2); ABSOLUTE EOSINOPHIL COUNT 0.2 /CUMM (0.0-0.7); ABSOLUTE GRANULOCYTE CT 3.8 /CUMM (1.4-6.5); ABSOLUTE LYMPH COUNT 2.7 /CUMM (1.2-3.4); ABSOLUTE MONOCYTE COUNT 0.6 /CUMM (0.10-0.60); BASOPHIL % 1.1 % (0.0-2.0); GRANULOCYTE % 51.7 % (42.2-75.2); MEAN CORPUSCULAR HGB 24.1 PG (27.0-31.0); MEAN CORPUSCULAR VOLUME 75.2 FL (81.0-99.0); MEAN PLATELET VOLUME 9.4 FL (7.4-10.4); PLATELET COUNT 313 /CUMM (130-400); RBC DISTRIBUTION WIDTH 17.5 % (11.5-14.5); RED BLOOD CELL CT 3.98 /CUMM (4.20-5.40); WHITE BLOOD CELL COUNT 7.4 /CUMM (4.8-10.8)
[2016-12-21 08:57] LABS: HEMATOCRIT 29.9 % (37-47)
--- NOTE | 2016-12-21 10:47 | PN- Student ---
Subjective Subjective: 31 y.o. female h/o insulin-dependent DM, migrane headaches, chronic abdominal pain s/p cholecystectomy and gastric sleeve, PCOS, and sleep apnea admitted with acute exacerbation of chronic abdominal pain and syncope. Pt states that for the past two weeks she has had decreased appetite, chills, nausea, and vomiting with an increase in her abdominal pain. Yesterday her abdominal pain was very severe and she had a syncopal episode while at work. Before the episode she felt nauseous, dizzy, and like her heart "skipped a beat". She does not remember losing conciousness, denies bowel or bladder incontinence. She feel from standing height and hit the back of her head on the ground. She had two more similar episodes of syncope, three episodes of vomiting, and two loose stools suring the day. Denies any sick contacts. She says her abdominal pain is constant, located in the LUQ and epigastrium, and worsens typically with different foods she eats. She has had syncopal episodes from the pain in the past. The pain began after her gastric sleeve operation and she has been following up with her PCP and trying to get an appt with a new bariatric surgeon. When the pain gets severe she typically goes to the emergency room for pain medication. When she is unable to get stronger pain medications she uses Tylenol at home. Currently she complains of severe pain in her LUQ and epigastrium which is similar to her chronic pain. She also complains of a severe headache located in the occipital region. This feels different than her migranes and began after striking her head yesterday. The pain is well controlled with her current pain regimen. She continues to feel weak and nauseous. Denies visual changes, chest pain, palpitations, SOB, vomiting, tarry/bloody stools, dysuria, edema. Objective Objective: Tele events: sinus rhythm/sinus bradycardia, rate 48-65, first degree heart block (IN 0.22) General: obese female, awake and alert, resting in bed, in moderate pain, in no acute distress HEENT: normocephalic/atraumatic, PERRL Cardiac: S1 and S2 heard, RRR, no M/R/G Lungs: CTA bilaterally, no W/R/R Abdomen: nondistended, normoactive bowel sounds, soft, moderate tenderness in LUQ/LLQ, pronouced tenderness in epigastric area, no rebound or guarding MSK: no LE edema, tibial pulses 2+ bilaterally, calves soft, right calf mild tenderness to palpation negative Kedar sign no erythema or edema, left calf nontender Neuro: cranial nerves II-XII grossly intact Psych: appropriate and cooperative with exam Results Results: Laboratory Tests 12/21/16 0645: Anion Gap 7, Estimated GFR > 60, BUN/Creatinine Ratio 6.0 L, Troponin I 0.01, CBC w Diff NO MAN DIFF REQ, RBC 3.98 L, MCV 75.2 L, MCH 24.1 L, RDW 17.5 H, MPV 9.4, Gran % 51.7, Lymphocytes % 35.9, Monocytes % 8.3, Eosinophils % 3.0, Basophils % 1.1, Absolute Granulocytes 3.8, Absolute Lymphocytes 2.7, Absolute Monocytes 0.6, Absolute Eosinophils 0.2, Absolute Basophils 0.1, PUBS MCHC 32.0 L 12/21/16 0215: Troponin I 0.02 12/20/16 2000: Urine Opiates Screen 2313.00 H, Methadone Screen < 40, Barbiturate Screen < 60, Ur Phencyclidine Scrn < 6.00, Amphetamines Screen < 100, U Benzodiazepines Scrn < 85, Urine Cocaine Screen < 50, Urine Cannabis Screen > 80.00 H 12/20/16 1755: Anion Gap 16, Estimated GFR > 60, BUN/Creatinine Ratio 8.0, Glucose 182 H, Calcium 9.6, Total Bilirubin 1.4 H, AST 40 H, ALT 41, Alkaline Phosphatase 91, Troponin I < 0.01, Total Protein 7.9, Albumin 4.5, Globulin 3.4, Albumin/ Globulin Ratio 1.3, Amylase 34, Lipase 61, TSH 1.310, Thyroxine (T4) 11.7 H, Total Beta HCG NEGATIVE, CBC w Diff NO MAN DIFF REQ, RBC 5.05, MCV 75.2 L, MCH 23.7 L, RDW 17.8 H, MPV 9.2, Gran % 82.1 H, Lymphocytes % 10.6 L, Monocytes % 5.2, Eosinophils % 1.6, Basophils % 0.5, Absolute Granulocytes 9.5 H, Absolute Lymphocytes 1.2, Absolute Monocytes 0.6, Absolute Eosinophils 0.2, Absolute Basophils 0.1, PUBS MCHC 31.5 L, Serum Alcohol < 10.0 Assessment/Plan Assessment: 31 y.o. female h/o insulin-dependent DM, migrane headaches, chronic abdominal pain s/p cholecystectomy and gastric sleeve, PCOS, and sleep apnea admitted with acute exacerbation of chronic abdominal pain and syncope with head strike. Significant labs were WBC 11. 6 today 7.4, Hgb/Hct today 9.6/29.9, K 3.3 today 3.0, Tbili 1.4, AST 40, ALT 41, TSH 1.31, T4 11.7, troponins/EKG negative. Urine tox screen positive for opiates and cannabis. CT abd/pelvis, head/cspine both showed no acute findings. Overnight telemetry showed episodes of sinus bradycardia and first degree heart block IN 0.22. Syncope may be vasovagal from acute increase in pain, related to dehydration from decreased oral intake/vomiting over past two weeks, or related to bradycardia/first degree heart block seen on tele monitor overnight. There was a drop in H/H from yesterday to 9.6/29.9 today. Chronic anemia after gastric bypass surgery, taking monthly B12 injections. Acute drop indicates possible occult bleed. Unilateral right calf with mild tenderness, low suspicion for DVT at this time. Plan: Syncope: - continue tele monitoring - IV NS - follow chairman & ceo's recommendations Acute exacerbation of chronic abdominal pain: - transition to PO pain medications - continue bowel regimen - continue diabetic diet Anemia: - guaiac stool - CBC tomorrow morning Hypokalemia: - continue oral repletion - BEP tomorrow morning Right calf pain: - continue to follow up - if it continues, becomes more severe, unilateral swelling occurs consider d dimer/LE doppler to rule out DVT
[2016-12-21 14:52] LABS: ABSOLUTE BASOPHIL COUNT 0.1 /CUMM (0.0-0.2); ABSOLUTE EOSINOPHIL COUNT 0.2 /CUMM (0.0-0.7); ABSOLUTE GRANULOCYTE CT 4.3 /CUMM (1.4-6.5); ABSOLUTE LYMPH COUNT 2.3 /CUMM (1.2-3.4); ABSOLUTE MONOCYTE COUNT 0.7 /CUMM (0.10-0.60); BASOPHIL % 1.1 % (0.0-2.0); EOSINOPHIL % 2.6 % (0-5); GRANULOCYTE % 56.8 % (42.2-75.2); HEMATOCRIT 31.8 % (37-47); MEAN CORPUSCULAR HGB 23.6 PG (27.0-31.0); MEAN CORPUSCULAR HGB CONC 31.8 G/DL (33.0-37.0); MEAN CORPUSCULAR VOLUME 74.4 FL (81.0-99.0); MEAN PLATELET VOLUME 9.4 FL (7.4-10.4); PLATELET COUNT 348 /CUMM (130-400); RBC DISTRIBUTION WIDTH 18.1 % (11.5-14.5); RED BLOOD CELL CT 4.27 /CUMM (4.20-5.40); WHITE BLOOD CELL COUNT 7.6 /CUMM (4.8-10.8)
[2016-12-21 16:08] VITALS: BP 142/84
--- NOTE | 2016-12-21 17:59 | Cons- Cardiology ---
General Information and HPI Consulting Request Date of Consult: 12/21/16 Requested By: NILESH FERMIN PhD,KRIS Morgan History of Present Illness: This patient is a 31 year old female with history of diabetes, migraine and morbid obesity s/p a gastric sleeve procedure. She presented to the [facility] ER after a syncopal episode. Ela had been feeling poorly with abdominal pain, some nausea and vomiting. She also noted an irregularity of her heartbeat. After arising from her desk to go to the bathroom, she walked a few steps, became diaphoretic, lightheaded and passed out hitting her head. She was unconscious for a few minutes but continued to feel groggy for a couple hours. There was no incontinence. The back of her neck now hurts. She was taking morphine and tramadol for her abdominal discomfort. It should be noted that this patient has experienced three episodes of syncope this week and first noted intermittent lightheaded episodes a few months ago. Other that these palpitations she feels reasonably well from a cardiac standpoint without any exertional chest pressure or shortness of breath. While in the hospital this patient is noted to be intermittently bradycardic. Workup included a head CT that showed an area suspicious for vasogenic edema without blood. The patient also had an abdominal CT showing lumbar disc disease. Allergies/Medications Allergies: Coded Allergies: Penicillins (SWELLING 11/28/16) morphine (HIVES 11/28/16) Home Med List: Cyanocobalamin (Vitamin B-12) (Cyanocobalamin Injection) 1,000 MCG/ML VIAL 1 ML IM Q30D SUPPLEMENT (Reported) Insulin Lispro (Humalog Kwikpen U-100) 100 UNIT/ML INSULN.PEN 20 UNITS SC TIDAC DM (Reported) Insulin-Lantus (Lantus) 100 UNIT/ML VIAL 30 UNITS SC QHS DM (Reported) Magnesium Oxide 400 MG TABLET 1 TAB PO DAILY SUPPLEMENT (Reported) Metoclopramide HCl (Reglan) 10 MG TABLET 1 TAB PO DAILY PRN HEADACHES ( Reported) 30 minutes before meals and bedtime Pantoprazole Sodium 40 MG TABLET.DR 1 TAB PO DAILY GI (Reported) Polyethylene Glycol 3350 17 GRAM/DOSE POWDER 17 GM PO DAILY GI (Reported) Review of Systems Review of Systems: Abdominal pain headaches Past History Travel History Traveled to [place] past 21 day No Medical History Blood Transfusion Hx: No Neurological: NONE EENT: NONE Cardiovascular: hypertension Respiratory: obstructive sleep apnea, USES CPAP Gastrointestinal: NONE Hepatic: NONE Renal: NONE Musculoskeletal: disk herniation Psychiatric: NONE Endocrine: diabetes Blood Disorders: NONE 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 Home Who Do You Live With? Family Services at Home: None Smoking Status: Current Everyday Smoker (1/2 ppd) ETOH Use: occasional use Illicit Drug Use: marijuana Functional Ability ADLs Independent: dressing, eating, toileting, bathing. Ambulation: independent IADLs Independent: shopping, housework, finances, food prep, telephone, transportation , medication admin. 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 Exam & Diagnostic Data Vital Signs and I&O Vital Signs Date Time Temp Pulse Resp B/P Pulse O2 O2 Flow FiO2 Ox Delivery Rate 12/21 1608 98.6 58 16 142/84 97 Room Air 12/21 0745 98.5 68 18 140/70 98 Room Air 12/20 2303 97.8 60 18 160/88 96 Room Air 12/20 2228 Room Air 12/20 2205 98.0 50 18 177/73 99 Room Air 12/20 1942 97.0 51 18 164/74 100 Room Air 12/20 1812 Room Air Intake & Output 12/21 1600 12/21 0800 12/21 0000 12/20 1600 12/20 0800 12/20 0000 Intake Total 820 200 Output Total 300 Balance 820 -100 Intake, IV 200 Intake, Oral 620 200 Output, Urine 300 Patient 307 lb 307 lb Weight Physical Exam: General: WD/ obese female in NAD; alert and oriented x 3 HEENT: NC/ AT, PERRL, EOMI, clear oropharynx with mmm Neck: no JVD, no carotid bruit Heart: RRR with 2/6 systolic murmur at the LLSB and RUSB Lungs: clear bilaterally Abdomen: soft, obese, tender in the left upper quadrant, +ve bowel sounds Extremities: no edema Diagnostic Data EKG Results sinus rhythm Assessment/Plan Assessment/Plan * This patient had a head CT showing an area of hypoattenuation in the frontal lobe thought to be artifact and an area of parietal lobe vasogenic edema. We will obtain a neurology consult and will follow the radiologists recommendation for an MRI of the head. * This patient has persistent abdominal pain. We will also obtain a surgical consult from a bariatric surgeon regarding the patient's persistent abdominal pain. * In regard to the patient's syncope, it is noted that she is bradycardic. TFT's are not consistent with hypothyroidism. This patient did experience the syncope after abdominal pain and also had some vomiting and decreased appetite that may have resulted in neurocardiogenic syncope. We will monitor on telemetry and will consider an outpatient tilt-table test. Consideration needs to be given to a pacemaker but I would not pursue this in this young individual unless there is clear symptomatic bradycardia. Replete potassium and monitor on telemetry. * Obtain an echocardiogram. Consult Acknowledgment - Thank you for your consult request.
--- NOTE | 2016-12-21 19:52 | Event Note ---
Event Note Event Note: Discussed with Dr. Parminder Euceda about the need for patient's further evaluation for the abdominal pain. Given the lack of acute findings on CT abdomen/pelvis without contrast, Dr. Euceda advised that the possibility for surgical indication is extremely low in this patient. He did mention, however, that CT abdomen/pelvis could possibly pick remover a finding that CT without contrast didn't but again the likelihood that it will indicate a surgical intervention is very low since CT abdomen w/o contrast was already negative. He advised that the LUQ pain, especially for patients who are s/p gastric sleeve as opposed to gastric bypass, is more likely due to non-surgical diagnosis such as PUD, gastritis, and pancreatitis.
[2016-12-22 00:07] VITALS: BP 168/67
[2016-12-22 07:50] VITALS: BP 146/70
[2016-12-22 08:11] LABS: ABSOLUTE BASOPHIL COUNT 0.1 /CUMM (0.0-0.2); ABSOLUTE EOSINOPHIL COUNT 0.3 /CUMM (0.0-0.7); ABSOLUTE GRANULOCYTE CT 3.6 /CUMM (1.4-6.5); ABSOLUTE LYMPH COUNT 1.7 /CUMM (1.2-3.4); ABSOLUTE MONOCYTE COUNT 0.5 /CUMM (0.10-0.60); BASOPHIL % 1.1 % (0.0-2.0); EOSINOPHIL % 4.1 % (0-5); GRANULOCYTE % 58.7 % (42.2-75.2); HEMATOCRIT 29.5 % (37-47); MEAN CORPUSCULAR HGB 23.8 PG (27.0-31.0); MEAN CORPUSCULAR VOLUME 74.5 FL (81.0-99.0); MEAN PLATELET VOLUME 9.5 FL (7.4-10.4); PLATELET COUNT 292 /CUMM (130-400); RBC DISTRIBUTION WIDTH 17.6 % (11.5-14.5); RED BLOOD CELL CT 3.96 /CUMM (4.20-5.40); WHITE BLOOD CELL COUNT 6.2 /CUMM (4.8-10.8)
--- NOTE | 2016-12-22 08:48 | PN- Housestaff ---
See Addendum Subjective Follow-up For: Bradycardia and pain abdomen Complaints: pain in abdomen, mild in nature Tele-Events Since Last Visit: Normal sinus rhythm, sinus bradycardia with heart rate less than 42 Subjective: Patient was seen and examined at the bedside. She was complaining of mild abdominal pain, otherwise she is a symptomatic and her she slept well overnight for 5-6 hours without any chest pain, nausea, vomiting, difficulty in breathing. Review of Systems Constitutional: Denies: no symptoms. Cardiovascular: Denies: no symptoms. Respiratory: Denies: no symptoms. Gastrointestinal: Reports: abdominal pain. Denies: bloating, constipation, diarrhea, distention, bowel incontinence, melena, nausea, bloody stool, changes in stool, vomiting, steatorrhea. Neurological/Psychological: Denies: no symptoms. Objective Last 24 Hrs of Vital Signs/I&O Vital Signs Date Time Temp Pulse Resp B/P Pulse O2 O2 Flow FiO2 Ox Delivery Rate 12/22 1700 98.2 56 18 132/78 97 Room Air 12/22 0750 98.3 50 20 146/70 98 Room Air 12/22 0007 98.4 68 20 168/67 98 Intake & Output 12/22 1600 12/22 0800 12/22 0000 Intake Total 158 247 2219 Output Total Balance 431 180 6866 Intake, Oral 058 677 4043 Physical Exam General Appearance: Alert, Oriented X3, Cooperative, No Acute Distress Skin: No Rashes, No Breakdown Cardiovascular: Normal S1, Normal S2 Lungs: Clear to Auscultation, Normal Air Movement Abdomen: Soft, distended Neurological: Normal Gait, Normal Speech Extremities: No Clubbing, No Cyanosis, No Edema Assessment/Plan Assessment: Ms. Wilburn is a 31 year old female with PMH insulin-dependant diabetes mellitus, migraine headaches, morbid obesity s/p gastric sleeve in July 2014 and PCOS (has not been compliant with prescribed NuvaRing) who presents with acute exacerbation of chronic abdominal pain and three episodes of syncope. Vital signs-temperature 98.2, pulse 56, respiratory rate 18, blood pressure 122/ 78, SPO2 97% on room air. Pertinent labs-hemoglobin 9.4, hematocrit pending, 29.5, MCV 74.5,K-3.2 Plan- Abdominal pain under evaluation As the CT abdomen/pelvis is not showing any acute intracerebral pathology. It doesn't seems that patient needs any surgical intervention at this time. Probably patient's left upper quadrant pain is secondary to PUD or gastritis. Bradycardia - Her thyroid function test is normal. Overnight there is no any cardiac event on telemetry. She can have echocardiogram as an outpatient Vasogenic edema on the CT scan under evaluation- Patient will follow neurologist as an outpatient after getting MRI of brain. Hypokalemia Her K -3.2 We will recheck the pottasium and if become normal than we discharge her. Diet-low fat, heart healthy diet DVT prophylaxis-ALP S/heparin CODE STATUS-full code Problem List: 1. Bradycardia Pain Ratin Pain Location: Left upper quadrant Pain Goal: Remain pain free Pain Plan: [id number] Tomorrow's Labs & Rationales: none DVT/Prophylaxis: mechanical, pharmacological
--- NOTE | 2016-12-22 16:55 | PN- Cardiology ---
Subjective Subjective: * Minimal lightheadedness today without palpitations. Abdominal pain is improved but not resolved. * No neurological deficits noted. * bradycardia has improved. * potassium 3.2 Objective Vital Signs and I&Os Vital Signs Date Time Temp Pulse Resp B/P Pulse O2 O2 Flow FiO2 Ox Delivery Rate 12/22 0750 98.3 50 20 146/70 98 Room Air 12/22 0007 98.4 68 20 168/67 98 Intake & Output 12/22 1600 12/22 0800 12/22 0000 12/21 1600 12/21 0800 12/21 0000 Intake Total 278 823 5808 820 200 Output Total 300 Balance 414 290 4992 820 -100 Intake, IV 200 Intake, Oral 248 174 8051 620 200 Output, Urine 300 Patient 307 lb 307 lb Weight Physical Exam: General: WD/ obese female in NAD; alert and oriented x 3 Neck: no JVD, no carotid bruit Heart: RRR with 2/6 systolic murmur at the LLSB and RUSB Lungs: clear bilaterally Abdomen: soft, obese, tender in the left upper quadrant, +ve bowel sounds Extremities: no edema Assessment/Plan Assessment/Plan * This patient has abdominal discomfort that may be related to her prior gastric sleeve procedure. We will begin a PPI. Her amylase and lipase are WNL so I have a low suspcion of pancreatitis. * Potassium is low and will be repleted. Administer KCl 40meq po times two doses two hours apart. Recheck a stat potassium level after giving this medication. * This patient has no neurologic deficits. We will obtain an outpatient MRI of the head as recommended by radiology. * In regard to the patient's syncope, it was noted that she was bradycardic. TFT 's are not consistent with hypothyroidism. This patient did experience the syncope after abdominal pain and also had some vomiting and decreased appetite that may have resulted in neurocardiogenic syncope. This is consistent with vasovagal syncope. Her heart rate appears to have improved. The patient will be discharged to home with follow up in the office in one week. Continue telemetry? No
[2016-12-22 17:00] VITALS: BP 132/78
--- NOTE | 2016-12-22 17:06 | Patient Discharge Instructions ---
Discharge Instructions General Discharge Information You were seen/treated for: bradycardia and abdominal pain under evaluation Special Instructions: please follow up with Dr Frost with in a week of discharge. You nay need MRI of brain,as your CT scan was showing vasogenic edema. We need to confirm it and if needed, Neurologist opinion. Please take the medication as advised. Diet Recommended Diet: Heart Healthy, Low Fat Activity Full Activity/No Limits: No (as tolerated) Acute Coronary Syndrome Inclusion Criteria At DC or during hospital stay patient has or had the following: ACS DIAGNOSIS No Discharge Core Measures Meds if any: Prescribed or Continued at Discharge Meds if any: NOT Prescribed or Continued at Discharge Congestive Heart Failure Inclusion Criteria At DC or during hospital stay patient has or had the following: CHF DIAGNOSIS No Discharge Core Measures Meds if any: Prescribed or Continued at Discharge Meds if any: NOT Prescribed or Continued at Discharge Cerebrovascular accident Inclusion Criteria At DC or during hospital stay patient has or had the following: CVA/TIA Diagnosis No Discharge Core Measures Meds if any: Prescribed or Continued at Discharge Meds if any: NOT Prescribed or Continued at Discharge Venous thromboembolism Inclusion Criteria VTE Diagnosis No VTE Type NONE VTE Confirmed by (Test) NONE Discharge Core Measures - Per Current guidelines, there needs to be overlap - treatment for the first 5 days of Warfarin therapy. - If discharged on Warfarin prior to 5 days of - overlap therapy, the patient will need to be - assessed for post discharge needs including - *Post discharge parental anticoagulation - *Warfarin and/or parental anticoagulation education - *Follow up date to check INR post discharge At least 5 days overlap therapy as Inpatient No Meds if any: Prescribed or Continued at Discharge Note: Overlap Therapy is Warfarin and Anticoagulant Meds if any: NOT Prescribed or Continued at Discharge
--- NOTE | 2016-12-23 13:02 | ECHOCARDIOGRAM REPORT ---
ARIEL JAY Age: 31 : 1985 Gender: F Exam Date: 12/22/2016 13:45 Exam Location: [address] Ht (in): 70 Wt (lb): 307 BSA: 2.69 BP: 144 / 70 Ordering Physician: JORGE MOORE MD Referring Physician: Romain Frost MD, PhD Technologist: Billie Rhodes [facility] Room Number: 176 Indications: CHEST PAIN Rhythm: Sinus Technical Quality: good FINDINGS Left Ventricle Normal left ventricular size with mild left ventricular hypertrophy. Normal systolic function with no obvious regional wall motion abnormalities. Normal left ventricular diastolic filling pattern for age. The ejection fraction is visually estimated at 60%. Right Ventricle The right ventricle is normal in size and function. Right Atrium The right atrium is normal in size. Left Atrium The left atrium is mildly enlarged. The interatrial septum is intact. Mitral Valve The mitral valve is normal in structure and function. There is trace mitral regurgitation. Aortic Valve Structurally normal aortic valve without significant sclerosis or stenosis. There is no aortic regurgitation. Tricuspid Valve The tricuspid valve is normal in structure and function. There is trace tricuspid regurgitation. Pulmonary artery systolic pressure is normal. Pulmonic Valve Structurally normal pulmonic valve. There is no pulmonic regurgitation. Pericardium Normal pericardium without effusion. No pleural effusion. Great Vessels Normal aortic root dimension. The aortic arch and great vessels are well seen and are normal. CONCLUSIONS 1. Normal EF of 60%. 2. Mild left ventricular hypertrophy. 3. Mild left atrial enlargement. 4. Trace mitral regurgitation. 5. Trace trace tricuspid regurgitation. Romain Frost M.D. (Electronically Signed) Final Date: 23 December 2016 13:01 MEASUREMENTS (Male / Female) Normal Values 2D ECHO LV Diastolic Diameter PLAX 5.0 cm 4.2 - 5.9 / 3.9 - 5.3 cm LV Systolic Diameter PLAX 3.2 cm 2.1 - 4.0 cm LV Fractional Shortening PLAX 36.0 % 25 - 46 % LV Ejection Fraction 2D Teich 65.4 % IVS Diastolic Thickness 1.2 cm LVPW Diastolic Thickness 1.2 cm LV Relative Wall Thickness 0.5 RV Internal Dim ED PLAX 2.4 cm 1.9 - 3.8 cm LVOT Diameter 2.0 cm Aortic Root Diameter 2.4 cm LA Systolic Diameter LX 4.5 cm 3.0 - 4.0 / 2.7 - 3.8 cm LA Volume 59.0 cm 18 - 58 / 22 - 52 cm Ascending Aorta Diameter 2.7 cm DOPPLER AV Peak Velocity 188.0 cm/s AV Peak Gradient 14.1 mmHg AV Mean Velocity 104.0 cm/s AV Mean Gradient 6.0 mmHg AV Velocity Time Integral 44.8 cm LVOT Peak Velocity 130.0 cm/s LVOT Peak Gradient 6.8 mmHg LVOT Mean Velocity 80.5 cm/s LVOT Mean Gradient 3.0 mmHg LVOT Velocity Time Integral 28.0 cm LVOT Stroke Volume 88.0 cm AV Area Cont Eq vti 2.0 cm AV Area Cont Eq pk 2.2 cm MV Peak Velocity 121.0 cm/s MV Peak Gradient 5.9 mmHg MV Mean Velocity 57.6 cm/s MV Mean Gradient 2.0 mmHg Mitral E Point Velocity 116.0 cm/s Mitral A Point Velocity 50.5 cm/s Mitral E to A Ratio 2.3 MV PHT Velocity 125.0 cm/s MV Deceleration [place] 363.0 cm/s MV Pressure Half Time 103.3 ms MV Area PHT 2.1 cm MV Deceleration Time 195.0 ms TR Peak Velocity 161.0 cm/s TR Peak Gradient 10.4 mmHg Right Atrial Pressure 5.0 mmHg Pulmonary Artery Systolic Pressu 15.4 mmHg Right Ventricular Systolic Press 15.4 mmHg PV Peak Velocity 113.0 cm/s PV Peak Gradient 5.1 mmHg PV Mean Velocity 87.1 cm/s PV Mean Gradient 3.0 mmHg PV Velocity Time Integral 32.7 cm LV E' Lateral Velocity 15.0 cm/s Mitral E to LV E' Lateral Ratio 7.7 LV E' Septal Velocity 15.5 cm/s Mitral E to LV E' Septal Ratio 7.5
--- NOTE | 2016-12-27 13:38 | Discharge Summary ---
Visit Information Visit Dates Admission Date: 12/20/16 Discharge Date: 12/22/16 Hospital Course Course Attending Physician: NILESH FERMIN PhD,KRIS Morgan Primary Care Physician: PATIENT HAS NO PRIMARY CARE DR Hospital Course: Ms. Wilburn is a 31-year-old female with a PMH insulin-dependant diabetes mellitus, migraine headaches, morbid obesity s/p gastric sleeve in July 2014 and PCOS (has not been compliant with prescribed NuvaRing) who presented with an acute exacerbation of chronic abdominal pain and three episodes of syncope. Patient was admitted to telmetery unit for the evluation of syncope and management of the following problems: 1. Syncope Per the patient, she had three episodes of syncope, the last of which was witnessed and patient was noted to have dizziness and cold sweating before it occured. These syncopal episodes tended to occur after an acute exacerbation of the chronic abdominal pain. Tele monitoring revealed bradycardia with HR as low as 50. Thus her syncope was most attributable to to neurocardiogenic/vasvogal eitology in the setting of bradycardia, vomitting prior to the episode, and abdominal pain crisis. There were no abnormali findings on telemetry monitoring and ACS work up (troponin & EKG negative x 3). Echocardiogram was grossly normal (EF ~ 60%). Orhostatic negative. Cardiology was consulted. On CT scan patient had an incidential finding of hypoattenuation in the frontal lobe thought to be artifact and an area of parietal lobe vasogenic edema. Neurology was consulted but deferred for an outpatient MRI testing as patient was discharged before the search engine optimization consultant saw the patient. 2. Acute on chronic abdominal pain with nausea/vomiting CT abdomen showed no acute intraabdominal pathology. However CT did show right ovarian cyst measuring 3.2 cm with close follow up with her PCP recommended for further management of this. Discussed with Dr. Parminder Euceda about the need for patient's further evaluation for the abdominal pain. Given the lack of acute findings on CT abdomen/pelvis without contrast, Dr. Euceda advised that the possibility for surgical indication is extremely low in this patient. He did mention, however, that CT abdomen/pelvis could possibly fern picker a finding that CT without contrast didn't but again the likelihood that it will indicate a surgical intervention is very low since CT abdomen w/o contrast was already negative. He advised that the LUQ pain, especially for patients who are s/p gastric sleeve as opposed to gastric bypass, is more likely due to non-surgical diagnosis such as PUD, gastritis, and pancreatitis. 3. Hypokalemia K 3.3 on admission due to vomiting. Potassium was repleted and checked on daily basis. 4. Insulin-dependant DM Patient was kept on Levemir 20 U SC at bedtime and NSS TIDAC. Allergies: Coded Allergies: Penicillins (SWELLING 11/28/16) morphine (HIVES 11/28/16) Disposition Summary Disposition Principal Diagnosis: Syncope Additional Diagnosis: Pain crisis Bradycardia Discharge Disposition: home or self care Discharge Instructions General Discharge Information Code Status: Full Code Patient's Diet: Diabetic Patient's Activity: As tolerated Follow-Up Instructions/Appts: please follow up with Dr Frost with in a week of discharge. You nay need MRI of brain,as your CT scan was showing vasogenic edema. We need to confirm it and if needed, Neurologist opinion. Please take the medication as advised. Medications at Discharge Discharge Medications: Stop taking the following medications: Magnesium Oxide (Magnesium Oxide) 400 MG TABLET ORAL DAILY Qty = 30 Metoclopramide HCl (Reglan) 10 MG TABLET ORAL DAILY as needed for HEADACHES Qty = 30 Continue taking these medications: Cyanocobalamin (Vitamin B-12) (Cyanocobalamin Injection) 1,000 MCG/ML VIAL 1 Milliliters INTRAMUSC ONCE A MONTH Qty = 1 Comments: NOT GIVEN IN HOSPITAL Insulin Lispro (Humalog Kwikpen U-100) 100 UNIT/ML INSULN.PEN 20 Units Inject into fatty tissue 3 TIMES DAILY BEFORE MEALS Qty = 15 Comments: Last Taken: 12/21/16 Time: 12:44 PM Insulin-Lantus (Lantus) 100 UNIT/ML VIAL 30 Units Inject into fatty tissue TAKE AT BEDTIME Qty = 10 Comments: Last Taken: 12/21/16 Time: 9 PM Polyethylene Glycol 3350 (Polyethylene Glycol 3350) 17 GRAM/DOSE POWDER 17 Gram ORAL DAILY Qty = 255 Comments: Last Taken: 12/21/16 Time: 9 PM Pantoprazole Sodium (Pantoprazole Sodium) 40 MG TABLET. 1 Tablet ORAL DAILY Comments: NOT GIVEN IN HOSPITAL Copies To: NILESH FERMIN PhD,KRIS LEONG MD,CHRISTINE Easley
--- NOTE | 2016-12-31 18:38 | Event Note ---
Event Note Event Note: Patient was contacted at [phone] without success. I left a voicemail explaining the need for a follow up with a neurologist regarding the incidiential CT head finding during the recent admission. I provided a referral to Dr. Spring Allen, the on-call neurologist who was consulted at the time of the admission (however patient was discharged before the consultation). Her mother Ms. Dickens was also contacated without succeess.
== END 2016-12-22 18:30 | DRG 204 ==
LOC: ENRESERVTM → ENRESERVDT → ERH 17:12 → 1NO 20:46 → ERHI 20:46 → 1NO 22:53
PROVIDERS: Internal Medicine; Physician Assistant; ADMIT Internal Medicine Interventional Cardiology
DX: R55 Syncope and collapse (principal); G93.6 Cerebral edema; E66.01 Morbid (severe) obesity due to excess calories; Z68.41 Body mass index [BMI] 40.0-44.9, adult; R00.1 Bradycardia, unspecified; G47.33 Obstructive sleep apnea (adult) (pediatric); R10.9 Unspecified abdominal pain; E11.9 Type 2 diabetes mellitus without complications; Z79.4 Long term (current) use of insulin; E28.2 Polycystic ovarian syndrome; Z87.891 Personal history of nicotine dependence; E87.6 Hypokalemia
CPT/HCPCS: 1NP; 36415; 74176; 80307; 82436; 93005; 93010; 93306; 96372; G0480; J1170; J1650; J2270; J2405

== ENCOUNTER 2016-12-26 13:28 | Emergency (ER) | payer OTHER ==
[~2016-12-26] VITALS: Ht 177.8 cm; Wt 133.4 kg
[~2016-12-26 13:28] MED LIST changes: +CYANOCOBAL1000 MCG/2 IM; +HUMALOG KW100 UNIT/1 SC; +LANTUS100 UNIT/1 SC; +MAGNESIUM OXID400 M1 PO; +PANTOPRAZOLE SO40 M1 PO; +POLYETHYLENE G255 GM PO; +REGLAN10 M1 PO
--- NOTE | 2016-12-26 14:22 | ED GI/GU/ABDOMINAL COMPLAINT ---
History of Present Illness General Chief Complaint: Abdominal Pain/Flank Pain Stated Complaint: ABDOMINAL PAIN Source: patient Exam Limitations: no limitations Vital Signs & Intake/Output Vital Signs & Intake/Output Vital Signs Date Time Temp Pulse Resp B/P Pulse O2 O2 Flow FiO2 Ox Delivery Rate 12/26 1720 96.9 62 18 148/70 100 Room Air 12/26 1526 96.0 79 20 172/84 100 Room Air 12/26 1407 98 12/26 1334 97.1 116 18 135/95 99 Room Air Allergies Coded Allergies: Penicillins (SWELLING 11/28/16) morphine (HIVES 11/28/16) Reconcile Medications Cyanocobalamin (Vitamin B-12) (Cyanocobalamin Injection) 1,000 MCG/ML VIAL 1 ML IM Q30D SUPPLEMENT (Reported) Hyoscyamine Sulfate (Levsin-Sl) 0.125 MG TAB.SUBL 1-2 TAB SL Q4P PRN ABDOMINAL DISCOMFORT Insulin Lispro (Humalog Kwikpen U-100) 100 UNIT/ML INSULN.PEN 20 UNITS SC TIDAC DM (Reported) Insulin-Lantus (Lantus) 100 UNIT/ML VIAL 30 UNITS SC QHS DM (Reported) Ondansetron (Zofran Odt) 4 MG TAB.RAPDIS 1 TAB SL TID PRN NAUSEA Pantoprazole Sodium 40 MG TABLET.DR 1 TAB PO DAILY GI (Reported) Polyethylene Glycol 3350 17 GRAM/DOSE POWDER 17 GM PO DAILY GI (Reported) Triage Note: C/O LUQ ABDOMINAL PAIN X 2 YEARS, STATES IT "GOT REAL BAD 2 HOURS AGO". ALSO C/O DIARRHEA TODAY AND VOMITING SINCE YESTERDAY. PMH: GASTRIC SLEEVE 2014. Triage Nurses Notes Reviewed? yes ? N Is pt currently ? No Onset: Gradual Duration: worse persistent since (2 HOURS) Timing: recent history Quality/Severity: sharpness Severity Numbers: 8 Location: left upper quadrant Radiation: no radiation Activities at Onset: none Prior Abdominal Problems: similar symptoms Past Sexual History: Unobtainable at this time HPI: Patient is a 31-year-old female presenting to the emergency Department chief complaint worsening abdominal pain in the left upper quadrant. She reports that the pain is been present for the past 2 years but worse over the past several hours. She reports associated nausea and vomiting yesterday. She reports diarrhea today. No blood in the stool or vomit. No fevers or chills. No sick contacts or recent travel. Denies recent antibiotic use. Nothing seems to make the symptoms better or worse. Denies any urinary symptoms. Denies chance of . She reports that she's been worked up in the past for her abdominal pain, no definable + with her. (LUISA HOUSTON) Past History Travel History Traveled to [place] past 21 day No Medical History Any Pertinent Medical History? see below for history Neurological: NONE EENT: NONE Cardiovascular: hypertension Respiratory: USES CPAP Gastrointestinal: NONE Hepatic: NONE Renal: NONE Musculoskeletal: disk herniation Psychiatric: NONE Endocrine: diabetes Blood Disorders: NONE CLIN NURSE/Reproductive: NONE History of MRSA: No History of VRE: No History of CDIFF: No Influenza Vaccine: 09/05/11 Surgical History Surgical History: cholecystectomy, GASTRIC SLEEVE lumbar disc surgery resection of an ovarian mass Psychosocial History Who do you live with Mother Services at Home None What is your primary language Uzbek Tobacco Use: Quit >30 days ago ETOH Use: denies use Family History Hx Contributory? No (LUISA HOUSTON) Review of Systems Review of Systems Constitutional: Reports: no symptoms. Comments Review of systems: See HPI, All other systems negative. Constitutional, no chills fever or weight loss HEENT: No visual changes no sore throat no congestion Cardiovascular: No chest pain ,palpitation , orthopnea or ankle swelling Skin, no jaundice no rashes Respiratory: No dyspnea cough sputum or hemoptysis GI: Positive nausea, vomiting, diarrhea : No dysuria No hematuria Muscle skeletal: no back pain, no neck pain, Neurologic: No numbness no confusion, no headache Psych: No stress anxiety or depression,. Heme/endocrine: No bruising no bleeding no polyuria or polydipsia Immunology: No splenectomy or history of AIDS (LUISA HOUSTON) Physical Exam Physical Exam General Appearance: well developed/nourished, no apparent distress, alert, awake Gastrointestinal: normal bowel sounds, soft, tenderness Comments: Well-developed well-nourished person in no acute distress HEENT: Pupils equally round and reactive to light and accommodation. Nose is atraumatic. Moist oral mucosa. Clearing secretions without difficulty. Neck: Supple, no lymphadenopathy, normal range of motion without pain or tenderness Back: Nontender, no CVA tenderness. Cardiovascular: Regular rate and rhythms no murmurs rubs or gallops, normal JVP Respiratory: Chest nontender. No respiratory distress.breath sounds clear to auscultation bilaterally Abdomen: Soft, tenderness to palpation in the left upper quadrant, no rebound or guarding nondistended, no appreciable organomegaly. Normal bowel sounds. No ascites Extremity: No edema Neuro: Alert oriented x3 Skin: No appreciable rash on exposed skin, skin is warm and dry. Psych: Mood and affect is normal, memory and judgment is normal. Core Measures ACS in differential dx? No Severe Sepsis Present: No Septic Shock Present: No (LUISA HOUSTON) Progress Differential Diagnosis: gastritis, pancreatitis, DIVERTICULITIS, GASTRITIS, PEPTIC ULCER DISEASE, sbo, VIRAL GASTROENTERITIS, DEHYDRATION, ELECTROLYTE ABNORMALITY Plan of Care: Orders Procedure Date/time Status LIPASE 12/26 142 Complete LACTIC ACID 12/26 1421 Complete COMPREHENSIVE METABOLIC PANEL 12/26 1421 Complete CBC WITHOUT DIFFERENTIAL 12/26 1421 Complete AMYLASE 12/26 1421 Complete Laboratory Tests 12/26/16 1722: Lactic Acid Cancelled 12/26/16 1505: Anion Gap 13, Estimated GFR > 60, BUN/Creatinine Ratio 12.0, Glucose 210 H, Lactic Acid 1.9, Calcium 10.0, Total Bilirubin 1.4 H, AST 32, ALT 43, Alkaline Phosphatase 84, Total Protein 7.3, Albumin 4.1, Globulin 3.2, Albumin/Globulin Ratio 1.3, Amylase 48, Lipase 51, CBC w Diff NO MAN DIFF REQ, RBC 4.85, MCV 74.5 L, MCH 23.5 L, RDW 17.6 H, MPV 9.1, Gran % 81.5 H, Lymphocytes % 12.3 L, Monocytes % 4.9, Eosinophils % 0.5, Basophils % 0.8, Absolute Granulocytes 9.1 H, Absolute Lymphocytes 1.4, Absolute Monocytes 0.6, Absolute Eosinophils 0.1, Absolute Basophils 0.1, PUBS MCHC 31.5 L Initial ED EKG: none Comments: iv FLUIDS INITIATED. pATIENT MEDICATED WITH PAIN MEDICATION. We also CBC, CMP. Patient has had several imaging studies in the past. We will try to avoid CAT scan if labs are unremarkable patient will follow up with GI doctor. Symptoms have been present for one year. Patient able to tolerate by mouth after pain medication. Unable to establish IV. Given IM pain medication. Patient was informed of all laboratory results. She'll follow-up with her director of graduate admissions. Patient nontoxic. Given DC appendicitis exclusion form. Likely exacerbation of chronic pain. Patient has history of gastric sleeve, questionable delayed gastric emptying. She is to follow up with her GI doctor for further evaluation. She'll return for any worsening symptoms or concerns. (LUISA HOUSTON) Departure Departure Time of Disposition: 1708 Disposition: HOME OR SELF CARE Condition: Stable Clinical Impression Primary Impression: Nausea & vomiting Qualifiers: Vomiting type: unspecified Vomiting Intractability: non-intractable Qualified Code: R11.2 - Nausea with vomiting, unspecified Secondary Impressions: Abdominal pain Referrals: PATIENT HAS NO PRIMARY CARE DR (PCP/Family) Additional Instructions: Follow-up with your director of graduate admissions call to make appointment. Take Zofran as prescribed for nausea. Take Levsin as directed for pain. Return for worsening symptoms or concerns. Departure Forms: Customer Survey D/C INS-APPENDICITIS EXCLUSION General Discharge Information Prescriptions: Current Visit Scripts Ondansetron (Zofran Odt) 1 TAB SL TID PRN NAUSEA #10 TAB Hyoscyamine Sulfate (Levsin-Sl) 1-2 TAB SL Q4P PRN ABDOMINAL DISCOMFORT #30 TAB (LUISA HOUSTON) PA/CABLE CUTTER AND SWAGER Co-Sign Statement Statement: ED Attending supervision documentation- [] I saw and evaluated the patient. I have also reviewed all the pertinent lab results and diagnostic results. I agree with the findings and the plan of care as documented in the PA's/CABLE CUTTER AND SWAGER's documentation. X I have reviewed the ED Record and agree with the PA's/CABLE CUTTER AND SWAGER's documentation. [] Additions or exceptions (if any) to the PAs/CABLE CUTTER AND SWAGER's note and plan are summarized below: [] (NORIS FERMIN,YUSRA)
[2016-12-26 15:15] LABS: ABSOLUTE BASOPHIL COUNT 0.1 /CUMM (0.0-0.2); ABSOLUTE EOSINOPHIL COUNT 0.1 /CUMM (0.0-0.7); ABSOLUTE GRANULOCYTE CT 9.1 /CUMM (1.4-6.5); ABSOLUTE LYMPH COUNT 1.4 /CUMM (1.2-3.4); MEAN CORPUSCULAR HGB 23.5 PG (27.0-31.0); MEAN CORPUSCULAR HGB CONC 31.5 G/DL (33.0-37.0); MEAN CORPUSCULAR VOLUME 74.5 FL (81.0-99.0)
[2016-12-26 15:19] LABS: ABSOLUTE MONOCYTE COUNT 0.6 /CUMM (0.10-0.60); BASOPHIL % 0.8 % (0.0-2.0); EOSINOPHIL % 0.5 % (0-5); GRANULOCYTE % 81.5 % (42.2-75.2); MEAN PLATELET VOLUME 9.1 FL (7.4-10.4); PLATELET COUNT 381 /CUMM (130-400); RBC DISTRIBUTION WIDTH 17.6 % (11.5-14.5); RED BLOOD CELL CT 4.85 /CUMM (4.20-5.40)
[2016-12-26 15:20] LABS: HEMATOCRIT 36.1 % (37-47); WHITE BLOOD CELL COUNT 11.1 /CUMM (4.8-10.8)
[2016-12-26] MEDS ORDERED: LEVSIN-SL0.125 MG SL (17:10)
[2016-12-26] MEDS ORDERED: ZOFRAN ODT4 M1 SL (17:10)
[2016-12-26 17:20] VITALS: BP 148/70
== END 2016-12-26 17:28 ==
LOC: ERH 13:28
PROVIDERS: Physician Assistant
DX: R11.2 Nausea with vomiting, unspecified (principal); R10.12 Left upper quadrant pain
CPT/HCPCS: 96372; J3101

== ENCOUNTER 2017-01-13 15:02 | Emergency (ER) | payer OTHER ==
[~2017-01-13] VITALS: Ht 177.8 cm; Wt 133.4 kg
[~2017-01-13 15:02] MED LIST changes: +LEVSIN-SL0.125 MG SL; +ZOFRAN ODT4 M1 SL
[2017-01-13 15:48] LABS: ABSOLUTE BASOPHIL COUNT 0.1 /CUMM (0.0-0.2); ABSOLUTE EOSINOPHIL COUNT 0.1 /CUMM (0.0-0.7); ABSOLUTE GRANULOCYTE CT 9.2 /CUMM (1.4-6.5); ABSOLUTE LYMPH COUNT 1.4 /CUMM (1.2-3.4); ABSOLUTE MONOCYTE COUNT 0.5 /CUMM (0.10-0.60); BASOPHIL % 0.7 % (0.0-2.0); GRANULOCYTE % 81.3 % (42.2-75.2); HEMATOCRIT 35.2 % (37-47); MEAN CORPUSCULAR HGB 23.1 PG (27.0-31.0); MEAN CORPUSCULAR HGB CONC 31.3 G/DL (33.0-37.0); MEAN CORPUSCULAR VOLUME 73.8 FL (81.0-99.0); MEAN PLATELET VOLUME 9.3 FL (7.4-10.4); PLATELET COUNT 332 /CUMM (130-400); RBC DISTRIBUTION WIDTH 17.6 % (11.5-14.5); RED BLOOD CELL CT 4.77 /CUMM (4.20-5.40); WHITE BLOOD CELL COUNT 11.3 /CUMM (4.8-10.8)
--- NOTE | 2017-01-13 16:59 | ED GI/GU/ABDOMINAL COMPLAINT ---
History of Present Illness General Chief Complaint: Abdominal Pain/Flank Pain Stated Complaint: ABD PAIN Source: patient, old records Exam Limitations: no limitations Vital Signs & Intake/Output Vital Signs & Intake/Output Vital Signs Date Time Temp Pulse Resp B/P Pulse O2 O2 Flow FiO2 Ox Delivery Rate 01/13 1509 98.4 111 20 98 Room Air Allergies Coded Allergies: Penicillins (SWELLING 11/28/16) morphine (HIVES 11/28/16) Reconcile Medications Cyanocobalamin (Vitamin B-12) (Cyanocobalamin Injection) 1,000 MCG/ML VIAL 1 ML IM Q30D SUPPLEMENT (Reported) Hyoscyamine Sulfate (Levsin-Sl) 0.125 MG TAB.SUBL 1-2 TAB SL Q4P PRN ABDOMINAL DISCOMFORT Insulin Lispro (Humalog Kwikpen U-100) 100 UNIT/ML INSULN.PEN 20 UNITS SC TIDAC DM (Reported) Insulin-Lantus (Lantus) 100 UNIT/ML VIAL 30 UNITS SC QHS DM (Reported) Ondansetron (Zofran Odt) 4 MG TAB.RAPDIS 1 TAB SL TID PRN NAUSEA Pantoprazole Sodium 40 MG TABLET.DR 1 TAB PO DAILY GI (Reported) Polyethylene Glycol 3350 17 GRAM/DOSE POWDER 17 GM PO DAILY GI (Reported) Triage Note: PT TO ED C/O ABD PAIN X A FEW MONTHS. HAS BEEN SEEN FOR SAME. STATES SHE HASN'T BEEN ABLE TO F/U DUE TO "I'M WAITING FOR MY RECORDS". C/O N/V, DENIES DIARRHEA. Triage Nurses Notes Reviewed? yes ? N Is pt currently ? No HPI: 31-year-old female history of cholecystectomy gastric sleeve 2 years ago at [place] presents emergency room complaining of an exacerbation of her chronic epigastric and left upper quadrant abdominal pain that she's had for the past 2 years since his surgery. She states this exacerbation has been present for at least one month. She has been taking Compazine for nausea without improvement. She states she has attempted to take several pain medications without improvement and has attempted to seek a second opinion with a second bariatric surgeon however is awaiting still on her medical records to be transferred. Patient denies any black or bloody stools no diarrhea chest pain shortness of breath no cough hemoptysis. No fever no chills patient reports that she's had numerous CAT scans performed at [place] and was seen here multiple times in the past for similar symptoms There are no urinary symptoms no vaginal bleeding or discharge. Symptoms are not worse with eating or no other modifying factors or associated symptoms otherwise no fever no chills. Past History Travel History Traveled to [place] past 21 day No Medical History Any Pertinent Medical History? see below for history Neurological: NONE EENT: NONE Cardiovascular: hypertension Respiratory: USES CPAP Gastrointestinal: NONE Hepatic: NONE Renal: NONE Musculoskeletal: disk herniation Psychiatric: NONE Endocrine: diabetes Blood Disorders: NONE LUG LOADER/Reproductive: NONE History of MRSA: No History of VRE: No History of CDIFF: No Surgical History Surgical History: cholecystectomy, GASTRIC SLEEVE lumbar disc surgery resection of an ovarian mass Psychosocial History Who do you live with Mother Services at Home None What is your primary language Slovenian Tobacco Use: Never used ETOH Use: denies use Illicit Drug Use: denies illicit drug use Family History Hx Contributory? No Review of Systems Review of Systems Constitutional: Reports: see HPI. All Other Systems: Reviewed and Negative Comments Constitutional: Reports: see HPI. All Other Systems: Reviewed and Negative Comments Review of systems: See HPI, All other systems negative. Constitutional, no chills no fever, no malaise HEENT: No visual changes no sore throat no congestion, Cardiovascular: No chest pain , no palpitation Skin, no rashes, no change in skin Respiratory: No dyspnea no cough no sputum GI: nausea vomiting, no diarrhea, : No dysuria Muscle skeletal: No joint pain, no joint swelling, no back pain, no neck pain, Neurologic: No numbness no headache Psych: No stress Heme/endocrine: No bruising no bleeding Immunology: No lymphadenopathy Physical Exam Physical Exam General Appearance: well developed/nourished, alert, awake Gastrointestinal: normal bowel sounds, soft, non-tender Comments: General Appearance: well developed/nourished, alert, awake Gastrointestinal: normal bowel sounds, soft, non-tender Comments: Well-developed well-nourished person in no acute distress HEENT: Normal EENT exam; PERRL, EOMI, HEAD is atraumatic. moist mucous membranes. Neck: Supple, normal range of motion Back: Nontender, no CVA tenderness. Full range of motion Cardiovascular: Regular rate and rhythms no murmurs rubs or gallops Respiratory: Chest nontender.There were no bony deformities, no asymmetry. No respiratory distress. Patient speaking in full complete sentences. Breath sounds clear to auscultation bilaterally: NO W/R/R Abdomen: Soft, nontender obese, nondistended, no appreciable organomegaly. Normal bowel sounds. No rebound/guarding, No appreciable enlargement of the abdominal aorta, No ascites. Extremity: No edema, full range of motion of extremities Neuro: Alert oriented x3, motor sensory normal, There were no obvious focal neurologic abnormalities. Skin: No appreciable rash on exposed skin, skin is warm and dry. Psych: Mood and affect is normal, memory and judgment is normal. Core Measures ACS in differential dx? No Severe Sepsis Present: No Septic Shock Present: No Progress Differential Diagnosis: appendicitis, biliary colic, bowel obstruction, colon cancer, ectopic , gastritis, inflamm bowel dis, intrauterine , kidney stone, peptic ulcer, PUD/GERD, perforated viscous, SBO, threatened AB, UTI/pyelo, PE Plan of Care: Orders Procedure Date/time Status Add-on Test (ER Only) 01/13 1712 Active HUMAN BETA HCG SCREEN 01/13 1530 Complete URINE 01/13 1512 Active URINALYSIS 01/13 1512 Active COMPREHENSIVE METABOLIC PANEL 01/13 1512 Complete CBC WITHOUT DIFFERENTIAL 01/13 1512 Complete Laboratory Tests 01/13/17 1530: Anion Gap 13, Estimated GFR > 60, BUN/Creatinine Ratio 14.0, Glucose 227 H, Calcium 9.7, Total Bilirubin 1.3, AST 35, ALT 45, Alkaline Phosphatase 94, Total Protein 7.6, Albumin 4.2, Globulin 3.4, Albumin/Globulin Ratio 1.2, Total Beta HCG NEGATIVE, CBC w Diff NO MAN DIFF REQ, RBC 4.77, MCV 73.8 L, MCH 23.1 L, RDW 17.6 H, MPV 9.3, Gran % 81.3 H, Lymphocytes % 12.8 L, Monocytes % 4.2, Eosinophils % 1.0, Basophils % 0.7, Absolute Granulocytes 9.2 H, Absolute Lymphocytes 1.4, Absolute Monocytes 0.5, Absolute Eosinophils 0.1, Absolute Basophils 0.1, PUBS MCHC 31.3 L Patient has had numerous CAT scans imaging studies performed most recently less than 2 weeks ago the CAT scan was reviewed by me. Discussed with patient all for lab results and recommended IV fluids Zofran and Toradol and the patient stating that "I do not wait 3 hours for that pain medicine" I discussed with her that I do not believe given the frequency of her visits without known cause that I do not believe narcotic pain medication is warranted which time the patient became agitated and stated that if she was not having get anything strong for pain she was just going to leave. Discussed with her that it was my recommendation that she stay for IV fluids hours at that time that the patient got up and walked out (HUMA GUTHRIE,MARY) Initial ED EKG: none Departure Departure Time of Disposition: 1732 Disposition: HOME OR SELF CARE Condition: Stable Clinical Impression Primary Impression: Abdominal pain Referrals: PATIENT HAS NO PRIMARY CARE DR (PCP/Family) Additional Instructions: Follow-up with your bariatric surgeon. As discussed this ER cannot provide you with narcotic pain medication for your chronic pain that you had for several years, you have also declined IV fluids, IV nausea medicine. You ARE declining further treatment here which was offered to you. Take your Compazine that you have at home bland diet Departure Forms: Customer Survey General Discharge Information
== END 2017-01-13 17:37 ==
LOC: ERH 15:02
PROVIDERS: Emergency Medicine
DX: R10.13 Epigastric pain (principal); R10.12 Left upper quadrant pain
CPT/HCPCS: 81025

== ENCOUNTER 2017-01-15 22:34 | Emergency (ER) | payer OTHER ==
[~2017-01-15] VITALS: Ht 177.8 cm; Wt 132.4 kg
[2017-01-15 22:45] VITALS: BP 162/98
--- NOTE | 2017-01-15 23:10 | ED GI/GU/ABDOMINAL COMPLAINT ---
History of Present Illness General Chief Complaint: Abdominal Pain/Flank Pain Stated Complaint: PT IS HAVING ABDOMINAL PAINS Source: patient Exam Limitations: no limitations Vital Signs & Intake/Output Vital Signs & Intake/Output Vital Signs Date Time Temp Pulse Resp B/P Pulse O2 O2 Flow FiO2 Ox Delivery Rate 01/15 2245 97.4 69 18 162/98 99 Room Air ED Intake and Output 01/16 0000 01/15 1200 Intake Total Output Total Balance Patient 292 lb Weight Allergies Coded Allergies: Penicillins (SWELLING 11/28/16) morphine (HIVES 11/28/16) Reconcile Medications Cyanocobalamin (Vitamin B-12) (Cyanocobalamin Injection) 1,000 MCG/ML VIAL 1 ML IM Q30D SUPPLEMENT (Reported) Hyoscyamine Sulfate (Levsin-Sl) 0.125 MG TAB.SUBL 1-2 TAB SL Q4P PRN ABDOMINAL DISCOMFORT Insulin Lispro (Humalog Kwikpen U-100) 100 UNIT/ML INSULN.PEN 20 UNITS SC TIDAC DM (Reported) Insulin-Lantus (Lantus) 100 UNIT/ML VIAL 30 UNITS SC QHS DM (Reported) Ondansetron (Zofran Odt) 4 MG TAB.RAPDIS 1 TAB SL TID PRN NAUSEA Pantoprazole Sodium 40 MG TABLET.DR 1 TAB PO DAILY GI (Reported) Polyethylene Glycol 3350 17 GRAM/DOSE POWDER 17 GM PO DAILY GI (Reported) Triage Note: RECEIVED 31 YO FEMALE C/O UPPER ABDOMINAL PAIN WITH NAUSEA AND VOMITING X FEW MONTHS. SEEN PMD. PT MOANING LOUDLY IN TRIAGE, DIFFICULT GETTING ANY INFORMATION Triage Nurses Notes Reviewed? yes ? n Is pt currently ? No Onset: Gradual Duration: week(s):, waxing and waning Timing: recent history Quality/Severity: burning, cramping Location: epigastric Radiation: no radiation Prior Abdominal Problems: similar symptoms Modifying Factors: Worsens With: palpation. Associated Symptoms: abdominal pain HPI: 31 yo woman h/o gastric sleeve, h/o abdominal pain for the past several months presents with recurrents of similar symptoms. She describes her pain as mostly in her mid abdomen, burning sensation, with mild nausea, no vomiting, diarrhea, fevers. She is otherwise well. Past History Travel History Traveled to [place] past 21 day No Medical History Any Pertinent Medical History? see below for history Neurological: NONE EENT: NONE Cardiovascular: hypertension Respiratory: USES CPAP Gastrointestinal: NONE Hepatic: NONE Renal: NONE Musculoskeletal: disk herniation Psychiatric: NONE Endocrine: diabetes Blood Disorders: NONE [employer] MECH[employer]IC/Reproductive: NONE History of MRSA: No History of VRE: No History of CDIFF: No Surgical History Surgical History: cholecystectomy, GASTRIC SLEEVE lumbar disc surgery resection of an ovarian mass Psychosocial History Who do you live with Mother Services at Home None What is your primary language [place]atian Tobacco Use: Never used Family History Hx Contributory? No Review of Systems Review of Systems Constitutional: Reports: no symptoms. EENTM: Reports: no symptoms. Respiratory: Reports: no symptoms. Cardiovascular: Reports: no symptoms. GI: Reports: no symptoms. Genitourinary: Reports: no symptoms. Musculoskeletal: Reports: no symptoms. Skin: Reports: no symptoms. Neurological/Psychological: Reports: no symptoms. Hematologic/Endocrine: Reports: no symptoms. Immunologic/Allergic: Reports: no symptoms. All Other Systems: Reviewed and Negative Physical Exam Physical Exam General Appearance: well developed/nourished, moderate distress Head: atraumatic, normal appearance Eyes: Bilateral: normal appearance. Ears, Nose, Throat, Mouth: hearing grossly normal Neck: normal inspection, supple, full range of motion, normal alignment Respiratory: normal breath sounds, chest non-tender, no respiratory distress, quiet respiration, lungs clear Cardiovascular: regular rate/rhythm Gastrointestinal: normal bowel sounds, soft, mid epigastric tenderness to palpation. no rebound. no guarding. Back: normal inspection Extremities: normal range of motion Neurologic/Psych: no motor/sensory deficits, awake, alert, oriented x 3 Skin: intact, normal color, warm/dry Core Measures ACS in differential dx? No Severe Sepsis Present: No Septic Shock Present: No Progress Differential Diagnosis: reflux, gastritis, gall bladder. Plan of Care: Orders Procedure Date/time Status CT ABD & PELVIS W/O IV CONTRAS 01/16 0149 Active URINALYSIS 01/15 2309 Active LIPASE 01/15 2309 Complete HEPATIC FUNCTION PANEL 01/15 230 Complete HUMAN BETA HCG SCREEN 01/15 2309 Complete CBC WITHOUT DIFFERENTIAL 01/15 2309 Complete BASIC METABOLIC PANEL 01/15 230 Complete AMYLASE 01/15 230 Complete Laboratory Tests 01/16/17 0105: Anion Gap 16, Estimated GFR > 60, BUN/Creatinine Ratio 12.0, Glucose 209 H, Calcium 9.9, Total Bilirubin 1.9 H, Direct Bilirubin 0.1, AST 30, ALT 39, Alkaline Phosphatase 86, Total Protein 7.3, Albumin 4.2, Amylase 71, Lipase 63, Total Beta HCG NEGATIVE, CBC w Diff NO MAN DIFF REQ, RBC 4.48, MCV 73.8 L, MCH 23.9 L, RDW 17.8 H, MPV 9.5, Gran % 87.9 H, Lymphocytes % 8.5 L, Monocytes % 3.1, Eosinophils % 0.2, Basophils % 0.3, Absolute Granulocytes 10.6 H, Absolute Lymphocytes 1.0 L, Absolute Monocytes 0.4, Absolute Eosinophils 0, Absolute Basophils 0, PUBS MCHC 32.4 L Initial ED EKG: none Departure Departure Disposition: HOME OR SELF CARE Condition: Stable Clinical Impression Primary Impression: Abdominal pain Referrals: PATIENT HAS NO PRIMARY CARE DR (PCP/Family) Departure Forms: Customer Survey General Discharge Information Comments 01/16/17, 2:42am... pt became belligerent, hostile, swung at nurse. Pt with benign labs, prior benign ct scan... pt wishes to leave AMA and declines to sign paperwork.
[2017-01-16 01:13] LABS: ABSOLUTE BASOPHIL COUNT 0 /CUMM (0.0-0.2); ABSOLUTE EOSINOPHIL COUNT 0 /CUMM (0.0-0.7); ABSOLUTE GRANULOCYTE CT 10.6 /CUMM (1.4-6.5); ABSOLUTE MONOCYTE COUNT 0.4 /CUMM (0.10-0.60); BASOPHIL % 0.3 % (0.0-2.0); EOSINOPHIL % 0.2 % (0-5); GRANULOCYTE % 87.9 % (42.2-75.2); HEMATOCRIT 33.1 % (37-47); MEAN CORPUSCULAR HGB 23.9 PG (27.0-31.0); MEAN CORPUSCULAR HGB CONC 32.4 G/DL (33.0-37.0); MEAN CORPUSCULAR VOLUME 73.8 FL (81.0-99.0); MEAN PLATELET VOLUME 9.5 FL (7.4-10.4); PLATELET COUNT 367 /CUMM (130-400); RBC DISTRIBUTION WIDTH 17.8 % (11.5-14.5); RED BLOOD CELL CT 4.48 /CUMM (4.20-5.40)
== END 2017-01-16 02:39 ==
LOC: ERH 22:34
PROVIDERS: Pediatrics
DX: R10.13 Epigastric pain (principal)
CPT/HCPCS: 96374; 96375; J2405